=== PATIENT | male | born 1965 | race Caucasian/White ===

== ENCOUNTER 2020-06-21 07:13 | Day surgery (SDC) | payer OTHER ==
[~2020-06-21] VITALS: Ht 188 cm; Wt 150.1 kg
--- NOTE | ~2020-06-21 | OP ---
PATIENT NAME: OLIVIA JOLLY JR MEDICAL RECORD: [id number] :63 [facility] [place] ADMISSION DATE: SURGEON: MILAD GRANT MD DATE OF OPERATION: 06/21/2020 PREOPERATIVE DIAGNOSIS: Failed internal fixation of a left fifth metatarsal fracture. POSTOPERATIVE DIAGNOSIS: Failed internal fixation of a left fifth metatarsal fracture. PROCEDURES: 1. Revision fixation of the left 5th metatarsal fracture. 2. Application of allograft bone graft (Bio4). 3. Removal of previously placed hardware. SURGEON: Milad Grant MD BUCKLE GLUER: OMI Pantoja INTRAOPERATIVE COMPLICATIONS: Essentially none. SUMMARY OF PATHOLOGIC FINDINGS: The patient had broken the distal end of the screw out of the distal fragment of the screw. INDICATIONS: Mr. Jolly is a 55-year-old gentleman who weighs over 350 pounds. He is also burdened by neuropathy in the postoperative setting. He said he fell and heard a loud pop and had a recurrence of the swelling. Unfortunately, his pain level is very low due to his neuropathy. Followup x-rays show that he did actually break the screw completely out of the bone and would require revision fixation. OPERATIVE SUMMARY IN DETAIL: After obtaining the appropriate preoperative orthopedic surgery consent as well as anesthetic consultation, evaluation and clearance, the patient was brought to the operating room and placed on the table in supine position. After general laryngeal mask airway was administered, the patient was placed in a right lateral decubitus position. All pressure points were well padded to include down leg peroneal pad as he was also held firmly to the operating table using vacuum pack suction system. Axillary roll was put into place. Tourniquet was then placed about the proximal aspect of the left lower extremity. Left lower extremity was then prepped and draped in routine sterile fashion. At this point, the appropriate timeout was taken and agreed upon by all given the patient's unique identifiers. The leg was elevated and exsanguinated, tourniquet inflated to 350 mmHg. An incision was made on the mid lateral border of the fifth metatarsal. It was taken gently down to the level of the fracture site itself, which required substantial removal of interposed fibrous tissue and up into the base of the fifth metatarsal of the previous screw head was found and it was removed from the proximal aspect of the metatarsal in its entirety. At this point, substantial amount of time was spent cleaning and debriding the fracture, the interposed fracture itself. Small sagittal saw was used to make an opposing surfaces even. After opposing surfaces were even, it was pinned provisionally and x-rays showed good alignment in both AP, lateral and oblique planes. The pins at this point were removed. Bio-4 was then put into place with the OPERATIVE REPORT [id number] OLIVIA JOLLY JR fracture opened up. This was then re-reduced and pins were then placed again. The decision was made to proceed with a very large fixation plate for the area that being a 6-hole VariAx small fragment screw because of the patient's weight and neuropathy in hopes that if he does step on this again, it would likely hold up. A 6-hole plate was then put in under tension and fluoroscopic guidance. A combination of both locking and nonlocking screws. Of course nonlocking screws for compression. Good alignment was achieved in both AP and lateral planes. Copious irrigation was then followed by #1 Vicryl and 2-0 Vicryl in a [id number]-[id number]-near closure. Padded dressing was placed and a postoperative L&U was placed. Final radiographs have been taken and submitted for radiologist review. At this point, the patient was awakened and taken to recovery room in stable condition. All final needle and sponge counts were correct. It is of note that the patient's family was warned of the absolute need for nonweightbearing to get this to heal in this diabetic neuropathic gentleman. TRANSINT:[id number] Voice Confirmation ID: [id number] DOCUMENT ID: [id number] 06/25/2020 Edited per earline abdalla. RUDY MONTES, MILAD NARAYAN CC: [id number] DICTATION DATE: 06/23/20 1300 ELIGIBILITY COUNSELOR: 06/23/20 2325 [facility] 06/21/20 [facility] [address] [id number]
[2020-06-21 06:50] LABS: HEMATOCRIT 47.3 % (42.0-54.0); HEMOGLOBIN 15.8 g/dL (13.5-17.5); MCH 30.6 pg (26.0-34.0); MCHC 33.4 g/dL (31.0-37.0); MCV 91.7 fL (80.0-100.0); MEAN PLATELET VOLUME 9.9 fL (7.4-10.4); RBC 5.16 10x6/uL (4.20-6.10); RDW 14.1 % (11.5-14.5); WBC 8.6 10x3/uL (4.8-10.8)
[2020-06-21 07:12] LABS: ANION GAP 12.8 mmol/L (8-16); CALCIUM 9.3 mg/dL (8.5-10.1); CARBON DIOXIDE 23.7 mmol/L (21.0-32.0); CREATININE - SERUM 1.5 mg/dL (0.6-1.3); POTASSIUM - SERUM 4.5 mmol/L (3.5-5.1)
[~2020-06-21 07:13] MED LIST: ADIPEX-P37.5 MG PO; ARMOUR THYROID30 MG PO; ATIVAN1 MG PO; BUTRANS1 EAC3 TRANSDERM; HYDROCODON-ACE1 EA10 PO; LANTUS SOLOSTAR3 ML SC; LISINOPRIL20 MG PO; NORVASC2.5 MG PO; OZEMPIC1 MG/0.75 SC; SYNTHROID300 MCG PO; TESTOSTERONE IM; [UNRECOGNIZED DRUG - OTHER] PO
[2020-06-21] MEDS ORDERED: BACTRIM DS TAB1 EAC1 PO (07:27)
[2020-06-21 07:31] VITALS: BP 139/83; Ht 188 cm; Wt 150.1 kg
[2020-06-21] MEDS ORDERED: HYDROCODON-ACE1 EA10 PO (11:50)
--- NOTE | 2020-06-21 15:22 | NUR ---
1342 PT STATES THAT HE HAS NOT FELT MUCH RELIEF FROM PAIN MEDICATION WHEN ASKED. HE HAS BEEN EAGER TO BE DISCHARGED HOME SO HE STATES THAT HE WILL ELEVATE HIS LLE UP HIGH ON PILLOWS AND KEEP ICE ON IT. HE STATES THAT IT DOES FEEL LIKE A HEART BEAT IN HIS FOOT. 1413 IV DC'D. CATHETER TIP INTACT. NO BLEEDING AT SITE. PT CONTINUES TO WAIT FOR HIS SON TO ARRIVE AT HOSPITAL TO TRANSPORT HIM HOME
== END 2020-06-21 14:47 | disposition home or self-care (01) ==
LOC: D.OPS 07:13 → D.PAN 08:45 → D.OPS 08:45
PROVIDERS: Anesthesiology; ATTEND Orthopaedic Surgery
DX: S92.352S Displaced fracture of fifth metatarsal bone, left foot, sequela (principal); M79.672 Pain in left foot; I10 Essential (primary) hypertension; E11.9 Type 2 diabetes mellitus without complications; E03.9 Hypothyroidism, unspecified; E78.5 Hyperlipidemia, unspecified; E66.9 Obesity, unspecified

== ENCOUNTER 2020-07-28 08:27 | Inpatient (IN) | payer OTHER ==
[~2020-07-28] VITALS: Ht 188 cm; Wt 149.7 kg
--- NOTE | ~2020-07-28 | OP ---
PATIENT NAME: OLIVIA JOLLY JR MEDICAL RECORD: [id number] :63 LOCATION:[id number] ADMISSION DATE:07/29/20 SURGEON: MILAD GRANT MD DATE OF OPERATION: 07/29/2020 PREOPERATIVE DIAGNOSES: 1. Left foot infection with residual hardware, now with osteomyelitis. 2. Peripheral neuropathy. 3. Diabetes. 4. Chronic obesity. POSTOPERATIVE DIAGNOSES: 1. Left foot infection with residual hardware, now with osteomyelitis. 2. Peripheral neuropathy. 3. Diabetes. 4. Chronic obesity. PROCEDURES: 1. Hardware removal of the left foot. 2. I&D of the left foot to include skin, subcutaneous tissue, portions of fat, fascia, muscle and bone. 3. Application of a wound negative pressure wound VAC. SURGEON: Milad Grant MD HIGH SCHOOL FOOTBALL COACH: Tyler Christine. INDICATIONS: This gentleman had a malunited Benjamin fracture that was initially treated with screw fixation that failed, although the patient said he had not walked on it, I have seen him walk on it and stand on it several times. The failure included a breakout of the screw proximally. The screw was removed and then a plate was put on, and after the plate was put on he developed substantial cellulitis and again I do think he was probably walking on it given his neuropathy in his job. At any rate, the surgery was planned for today in order to try and save his foot from further surgery and even need for amputation. OPERATIVE SUMMARY IN DETAIL: After obtaining the appropriate preoperative orthopedic surgery consent as well as anesthetic consultation, evaluation and clearance, the patient was brought to the operating room and placed on the operating table in supine position. After general laryngeal mask airway was administered, the patient's left foot was prepped and draped in routine sterile fashion. Attention was first turned to debriding nonviable, very cellulitic appearing tissue. This was done with curettage sharply with a scalpel as well as a rongeur. Then very easily, the plate was found. Serial and sequential removal of both screws and the plate led to identification of a nonunited midshaft metatarsal fracture. Further irrigation was done until all nonviable tissue was seen and good bleeding bed was achieved. At this point, a wound VAC was then placed with 125 mm of negative pressure, medium intensity, continuous. Good seal was achieved. The patient was awakened and taken to the recovery room in stable condition. All final needle and sponge counts were correct. TRANSINT:[id number] Voice Confirmation ID: [id number] DOCUMENT ID: [id number] OPERATIVE REPORT [id number] OLIVIA JOLLY JR, MD, MILAD NARAYAN CC: [id number] DICTATION DATE: 08/19/201402 ELECTRONICS COMMODITY MANAGER: 08/19/20 1546 DIS IN 08/06/20 [facility] [address] [place] [address]
[~2020-07-28 08:27] MED LIST changes: +BACTRIM DS TAB1 EAC1 PO
[2020-07-29] MEDS ORDERED: DOXYCYCLINE HY100 M2 PO (09:37)
[2020-07-29 09:45] VITALS: BP 134/81; BMI 42.4
[2020-07-29 11:15] LABS: BASOPHILS 0 % (0-2); EOSINOPHILS 0.4 % (0-7); HEMATOCRIT 34.2 % (42.0-54.0); HEMOGLOBIN 11.2 g/dL (13.5-17.5); IMMATURE GRANULOCYTES 0.6 % (0-5); LYMPHOCYTES 15.3 % (15-50); MCH 29.2 pg (26.0-34.0); MCHC 32.7 g/dL (31.0-37.0); MCV 89.3 fL (80.0-100.0); MEAN PLATELET VOLUME 9.4 fL (7.4-10.4); MONOCYTES 10.7 % (2-11); PLATELET COUNT 245 10x3/uL (130-400); RBC 3.83 10x6/uL (4.20-6.10); RDW 14.1 % (11.5-14.5)
[2020-07-29 11:24] LABS: ANION GAP 11.5 mmol/L (8-16); CALCIUM 9.2 mg/dL (8.5-10.1); CARBON DIOXIDE 24.3 mmol/L (21.0-32.0); CREATININE - SERUM 1.3 mg/dL (0.6-1.3); POTASSIUM - SERUM 3.8 mmol/L (3.5-5.1)
[2020-07-29 12:04] VITALS: BP 134/81
[2020-07-29 12:16] LABS: ERYTHROCYTE SEDIMENTATION RATE 132 mm/hr (0-20)
--- NOTE | 2020-07-29 12:33 | NUR ---
PATIENT DENIES PAIN. WIGGLES TOES. WOUND VAC TO SUCTION. NO COMPLICATIONS.
[2020-07-29 12:52] VITALS: BP 156/85
--- NOTE | 2020-07-29 12:53 | NUR ---
PT RETURNS TO ROOM VIA BED ESCORTED BY RECOVERY ROOM STAFF. PT IS AAO X 4 AND ANSWERS ALL QUESTIONS APPROPRIATELY. PT EDUCATED ON 1200ML FLUID RESTRICTION AND NO FREE WATER. PT VERBALIZES UNDERSTANDING. INCENTIVE SPIROMETER AT BEDSIDE AND ENCOURAGED. PT VERBALIZES UNDERSTANDING WITH INCENTIVE SPIROMETER. DRESSING NOTED TO LEFT FOOT AND IS CDI. WOUND VAC TO LEFT FOOT AND IS WITHOUT COMPROMISE. PIV TO LEFT FA INFUSING WITHOUT DIFFICULTY. PT DENIES PRESENCE OF NUMBNESS/TINGLING TO BUE AND BLE EXTREMITIES. FALL PRECAUTIONS IN PLACE. BED IS IN THE LOWEST POSITION. CALL LIGHT AND BEDSIDE TABLE ARE WITHIN REACH. SIDE RAILS X 2. PT DENIES FURTHER NEEDS. WILL CONT TO MONITOR.
[2020-07-29 16:42] VITALS: BP 112/52
[2020-07-29 17:50] VITALS: BP 136/61
--- NOTE | 2020-07-29 18:45 | NUR ---
I have reviewed this patient and I concur with the Shift Assessment completed by the Licensed Practical Nurse today this shift.
[2020-07-29 20:00] VITALS: BP 107/50
[2020-07-30 04:00] VITALS: BP 134/60
[2020-07-30 05:39] LABS: BASOPHILS 0.2 % (0-2); EOSINOPHILS 0.6 % (0-7); HEMATOCRIT 33.5 % (42.0-54.0); HEMOGLOBIN 10.9 g/dL (13.5-17.5); LYMPHOCYTES 20.6 % (15-50); MCH 29.1 pg (26.0-34.0); MCHC 32.5 g/dL (31.0-37.0); MCV 89.3 fL (80.0-100.0); MEAN PLATELET VOLUME 9.4 fL (7.4-10.4); MONOCYTES 11.8 % (2-11); NEUTROPHILS 65.8 % (40-80); PLATELET COUNT 260 10x3/uL (130-400); RBC 3.75 10x6/uL (4.20-6.10); RDW 14.2 % (11.5-14.5); WBC 6.2 10x3/uL (4.8-10.8)
--- NOTE | 2020-07-30 05:47 | NUR ---
I have reviewed this patient and I concur with the Shift Assessment completed by the Licensed Practical Nurse today this shift.
[2020-07-30 06:02] LABS: ALBUMIN 2.1 g/dL (3.4-5.0); ANION GAP 14.1 mmol/L (8-16); BILIRUBIN - TOTAL 0.4 mg/dL (0.2-1.3); CALCIUM 8.9 mg/dL (8.5-10.1); CARBON DIOXIDE 25.2 mmol/L (21.0-32.0); CREATININE - SERUM 1.5 mg/dL (0.6-1.3); POTASSIUM - SERUM 4.3 mmol/L (3.5-5.1); PROTEIN - SERUM 7.2 g/dL (6.4-8.2)
[2020-07-30 06:18] LABS: C-REACTIVE PROTEIN 21.5 mg/dL (0.0-0.9)
--- NOTE | 2020-07-30 07:30 | NUR ---
REC'D IN BED AWAKE AND ALERT. RESP EVEN AND UNLABORED WTIH NO DISTRESS NOTED. CAN EXPRESS NEEDS AND WANTS. NO C/O NOTED OR VOICED. WOUND VAC NOTED TO RIGHT FOOT AT THIS TIME. REMAIN NWB TO RLE. ASSESSMENT COMPLETED. C/L IN REACH AT BEDSIDE.
[2020-07-30 08:25] LABS: ERYTHROCYTE SEDIMENTATION RATE 115 mm/hr (0-20)
[2020-07-30 10:10] VITALS: BP 112/60
--- NOTE | 2020-07-30 11:39 | NUR ---
ORDER RECEIVED FOR PICC PLACEMENT. ON ARRIVAL, PICC LINE DISCUSSED WITH PATIENT AND WRITTEN CONSENT OBTAINED. USING SITE RITE ULTRASOUND, LEFT UPPER ARM BASILIC VEIN IDENTIFIED FOR USE. PREP, DRAPE AND 1% XYLOCAINE TO AREA. VEIN ACCESSED AND DOUBLE LUMEN PICC INSERTED TO 51 CM WTIH GOOD BLOOD RETURN AND FLUSHES EASILY. SITE DRESSED WITH STATLOCK, BIOPATCH AND TEGADERM DRESSING TO SITE. PLACEMENT CONFIRMED WITH 3CG WITH STRIP ATTACHED. ARM CIRCUMFERENCE 36 CM AT SITE OF INSERTION. PATIENT TOLERATED PROCEDURE WELL WITH LESS THAN 5 ML BLOOD LOSS.
--- NOTE | 2020-07-30 12:35 | NUR ---
WAS MEDICATED WITH OXY AT THIS TIME FOR C/O FOOT PAIN.
[2020-07-30 13:29] VITALS: BMI 42.3
[2020-07-30 13:50] VITALS: BP 140/76
--- NOTE | 2020-07-30 16:11 | NUR ---
I have reviewed this patient and I concur with the Shift Assessment completed by the Licensed Practical Nurse today this shift.
[2020-07-30 16:49] VITALS: BP 114/65
[2020-07-30 20:00] VITALS: BP 120/68
[2020-07-31] VITALS: BP 122/60
[2020-07-31 04:00] VITALS: BP 133/75
--- NOTE | 2020-07-31 04:05 | NUR ---
I have reviewed this patient and I concur with the Shift Assessment completed by the Licensed Practical Nurse today this shift.
--- NOTE | 2020-07-31 05:54 | NUR ---
PATIENT RESTING IN BED WATCHING TV. NO S/S OF ACUTE DISTRESS. NO C/O AT THIS TIME. PATIENT HAS A RIGHT PICC, 1/2 NORMAL SALINE @ 50 ML/HR. IV IS PATENT WITHOUT REDNESS, SWELLING, OR TENDERNESS. PATIENT HAS DRESSING ON RIGHT FOOT AND A WOUND VAC, DRESSING C/D/I. PATIENT IS UP WITH ASSISTANCE AND NON-WEIGHT BEARING ON THAT RIGHT FOOT
--- NOTE | 2020-07-31 07:15 | NUR ---
REC'D IN BED AWAKE AND ALERT. RESP EVEN AND UNLABORED WITH NO DISTRESS NOTED. CAN EXPRESS NEEDS AND WANTS. NO C/O NOTED OR VOICED. WOUND VAC NOTED TO RIGHT FOOT. ASSESSMENT COMPLETED. C/L IN REACH AT BEDSIDE.
[2020-07-31 07:21] LABS: ANION GAP 10.8 mmol/L (8-16); C-REACTIVE PROTEIN 11.6 mg/dL (0.0-0.9); CALCIUM 8.7 mg/dL (8.5-10.1); CARBON DIOXIDE 26.1 mmol/L (21.0-32.0); CREATININE - SERUM 1.2 mg/dL (0.6-1.3); POTASSIUM - SERUM 3.9 mmol/L (3.5-5.1); VANCOMYCIN - TROUGH 15.4 ug/mL (10.0-20.0)
--- NOTE | 2020-07-31 08:33 | NUR ---
WAS MEDICATED WITH OXY AT THIS TIME FOR C/O FOOT PAIN. C/L IN REACH AT BEDSIDE.
[2020-07-31 09:09] LABS: BASOPHILS 0.2 % (0-2); EOSINOPHILS 1.4 % (0-7); HEMATOCRIT 32.2 % (42.0-54.0); HEMOGLOBIN 10.5 g/dL (13.5-17.5); IMMATURE GRANULOCYTES 0.8 % (0-5); LYMPHOCYTES 26.3 % (15-50); MCH 29.4 pg (26.0-34.0); MCHC 32.6 g/dL (31.0-37.0); MCV 90.2 fL (80.0-100.0); MEAN PLATELET VOLUME 9.5 fL (7.4-10.4); NEUTROPHILS 63.3 % (40-80); PLATELET COUNT 248 10x3/uL (130-400); RBC 3.57 10x6/uL (4.20-6.10); WBC 6.4 10x3/uL (4.8-10.8)
[2020-07-31 09:15] VITALS: BP 128/77
[2020-07-31 10:18] LABS: ERYTHROCYTE SEDIMENTATION RATE 107 mm/hr (0-20)
[2020-07-31 12:23] VITALS: BP 125/75
--- NOTE | 2020-07-31 14:12 | NUR ---
WAS MEDICATED WITH OXY AT THIS TIME FOR C/O FOOT PAIN. C/L IN REACH AT BEDSIDE.
[2020-07-31 16:00] VITALS: BP 139/73
--- NOTE | 2020-07-31 17:24 | NUR ---
I have reviewed this patient and I concur with the Shift Assessment completed by the Licensed Practical Nurse today this shift.
--- NOTE | 2020-07-31 19:25 | NUR ---
PATIENT TAKING SHOWER.
--- NOTE | 2020-07-31 19:45 | NUR ---
PATIENT OUT OF SHOWER. ASSESSMENT PERFORMED. WOUND VAC REMAINS IN TACT TO THE RIGHT FOOT AND SUCTIONING AT 125 MMHQ. PATIENT DENIES NEEDS AT THIS TIME. CALL LIGHT CLOSE. CPOC.
--- NOTE | 2020-07-31 20:00 | NUR ---
PATIENT REQUESTS PAIN MEDICINE FOR PAIN IN RT FOOT 05/07. ADMINISTERED PER ORDER.
[2020-07-31 21:35] VITALS: BP 168/88
[2020-08-01] VITALS: BP 153/76
[2020-08-01 04:00] VITALS: BP 146/81
[2020-08-01 05:31] LABS: BASOPHILS 0 % (0-2); LYMPHOCYTES 14.8 % (15-50); MCH 29.6 pg (26.0-34.0); MCHC 33.3 g/dL (31.0-37.0); MCV 88.7 fL (80.0-100.0); MEAN PLATELET VOLUME 9.6 fL (7.4-10.4); MONOCYTES 6.4 % (2-11); NEUTROPHILS 76.8 % (40-80); RDW 13.9 % (11.5-14.5); WBC 4.8 10x3/uL (4.8-10.8)
[2020-08-01 05:37] LABS: ANION GAP 11.1 mmol/L (8-16); C-REACTIVE PROTEIN 6.5 mg/dL (0.0-0.9); CALCIUM 8.8 mg/dL (8.5-10.1); CARBON DIOXIDE 25.8 mmol/L (21.0-32.0); POTASSIUM - SERUM 3.9 mmol/L (3.5-5.1)
[2020-08-01 05:38] LABS: PLATELET COUNT 169 10x3/uL (130-400); RBC 5.41 10x6/uL (4.20-6.10)
[2020-08-01 05:40] LABS: CREATININE - SERUM 1.7 mg/dL (0.6-1.3)
[2020-08-01 06:19] LABS: ERYTHROCYTE SEDIMENTATION RATE 18 mm/hr (0-20)
[2020-08-01 08:36] VITALS: BP 138/82
--- NOTE | 2020-08-01 09:55 | NUR ---
PT RESTING QUIETLY IN BED. RESP EVEN AND UNLABORED. PT REPORTS PAIN "MINIMAL" AT THIS TIME. PICC LINE INTACT TO LEFT UPPER ARM. SITE WITHOUT REDNESS OR EDEMA. DRESSING C/D/I TO LEFT LOWER EXTREMITY, WITH WOUND VAC IN PLACE. DISCUSSED FLUID RESTRICTIONS AT THIS TIME. PT VOICES UNDERSTANDING OF LIMITING FREE WATER. DENIES FURTHER NEEDS AT THIS TIME. CL WITHIN REACH. ENCOURAGED TO CALL WITH NEEDS. CONTINUE POC
[2020-08-01 11:51] VITALS: BP 141/79
[2020-08-01 16:22] VITALS: BP 142/72
[2020-08-01 20:00] VITALS: BP 135/67
[2020-08-02] VITALS: BP 143/72
--- NOTE | 2020-08-02 02:11 | NUR ---
TUBING CHANGED PER UNIT PROTOCAL.
[2020-08-02 04:00] VITALS: BP 123/70
[2020-08-02 05:44] LABS: BASOPHILS 0.3 % (0-2); EOSINOPHILS 2.9 % (0-7); IMMATURE GRANULOCYTES 1.1 % (0-5); LYMPHOCYTES 20.5 % (15-50); MCH 28.9 pg (26.0-34.0); MCHC 31.9 g/dL (31.0-37.0); MCV 90.5 fL (80.0-100.0); MEAN PLATELET VOLUME 9.1 fL (7.4-10.4); MONOCYTES 8.6 % (2-11); NEUTROPHILS 66.6 % (40-80); RDW 14.2 % (11.5-14.5)
[2020-08-02 06:06] LABS: HEMATOCRIT 33.2 % (42.0-54.0); HEMOGLOBIN 10.6 g/dL (13.5-17.5); RBC 3.67 10x6/uL (4.20-6.10); WBC 7.3 10x3/uL (4.8-10.8)
[2020-08-02 06:07] LABS: C-REACTIVE PROTEIN 5.3 mg/dL (0.0-0.9); CALCIUM 8.4 mg/dL (8.5-10.1); CARBON DIOXIDE 26.1 mmol/L (21.0-32.0); CREATININE - SERUM 1.9 mg/dL (0.6-1.3); PLATELET COUNT 276 10x3/uL (130-400); POTASSIUM - SERUM 4.1 mmol/L (3.5-5.1)
--- NOTE | 2020-08-02 07:25 | NUR ---
PT ASLEEP IN BED, EASILY AWAKENED. LUMGS CTA, PICC LT UPPER ARM PATENT , ABX RUNNING AT THIS TIME, WOUND VAC TO LEFT FOOT. NO S/SX OF DISTRESS NO NEEDS VOICED BY PATIENT AT THIS TIME. ASSUME PT CARE
[2020-08-02 08:20] LABS: ERYTHROCYTE SEDIMENTATION RATE 114 mm/hr (0-20)
[2020-08-02 09:05] VITALS: BP 135/77
--- NOTE | 2020-08-02 10:28 | NUR ---
I have reviewed this patient and I concur with the Shift Assessment completed by the Licensed Practical Nurse today this shift.
[2020-08-02 12:38] VITALS: BP 135/72
[2020-08-02 15:00] VITALS: BP 123/55
--- NOTE | 2020-08-02 15:10 | NUR ---
WOUND VAC DRESSING CHANGE DATE: 08/02/20 WOUND LOCATION: left foot WOUND MEASUREMENTS: 2.2cm x 7cm x 1.5cm WOUND DESCRIPTION: red/vascular MUSCLE, TENDON, OR BONE EXPOSED? can tap bone DRAINAGE AMOUNT/DESCRIPTION: small bloody ODOR? no TYPE OF SPONGE USED AND AMOUNT: black x 1 in wound bed + 2 outer for pig tail SETTINGS: -125mmhg low continuous TEACHING: vac dressing changes, home vac, home health Pt tolerated well. Wound cultures obtained as per Dr. Glass's orders/
[2020-08-02 20:00] VITALS: BP 131/75
--- NOTE | 2020-08-02 21:00 | NUR ---
REFUSES LANTUS AND FSBS
[2020-08-03 04:00] VITALS: BP 134/78
[2020-08-03 06:43] LABS: BASOPHILS 0.1 % (0-2); EOSINOPHILS 2.7 % (0-7); HEMATOCRIT 33.4 % (42.0-54.0); HEMOGLOBIN 10.7 g/dL (13.5-17.5); IMMATURE GRANULOCYTES 1.4 % (0-5); LYMPHOCYTES 19.5 % (15-50); MCH 29.2 pg (26.0-34.0); MCV 91.3 fL (80.0-100.0); MEAN PLATELET VOLUME 9.3 fL (7.4-10.4); MONOCYTES 8.4 % (2-11); NEUTROPHILS 67.9 % (40-80); PLATELET COUNT 298 10x3/uL (130-400); RBC 3.66 10x6/uL (4.20-6.10); RDW 14.2 % (11.5-14.5); WBC 7.7 10x3/uL (4.8-10.8)
[2020-08-03 07:00] VITALS: BP 133/69
[2020-08-03 07:06] LABS: ANION GAP 10.6 mmol/L (8-16); C-REACTIVE PROTEIN 4.8 mg/dL (0.0-0.9); CARBON DIOXIDE 27.8 mmol/L (21.0-32.0); POTASSIUM - SERUM 4.4 mmol/L (3.5-5.1)
[2020-08-03 07:58] LABS: ERYTHROCYTE SEDIMENTATION RATE 98 mm/hr (0-20)
[2020-08-03 11:00] VITALS: BP 129/75
--- NOTE | 2020-08-03 13:50 | NUR ---
NUTRITION F/U CHART REVIEWED. PT TOLERATING DIABETIC DIET ~ ABOUT 50% INTAKE MEALS. WILL CONTINUE TO PROVIDE DIET, MONITOR PO INTAKE. RD FOLLOWING
[2020-08-03 15:00] VITALS: BP 143/75
[2020-08-03 20:00] VITALS: BP 143/74
[2020-08-04 04:00] VITALS: BP 130/75
[2020-08-04 06:47] LABS: BASOPHILS 0.1 % (0-2); EOSINOPHILS 2.1 % (0-7); HEMATOCRIT 33.4 % (42.0-54.0); HEMOGLOBIN 10.6 g/dL (13.5-17.5); IMMATURE GRANULOCYTES 1.6 % (0-5); LYMPHOCYTES 16.2 % (15-50); MCH 28.9 pg (26.0-34.0); MCHC 31.7 g/dL (31.0-37.0); MEAN PLATELET VOLUME 9.2 fL (7.4-10.4); PLATELET COUNT 313 10x3/uL (130-400); RBC 3.67 10x6/uL (4.20-6.10); RDW 14.1 % (11.5-14.5)
[2020-08-04 06:50] LABS: WBC 10.1 10x3/uL (4.8-10.8)
[2020-08-04 07:01] LABS: ALBUMIN 2.3 g/dL (3.4-5.0); ANION GAP 13.4 mmol/L (8-16); BILIRUBIN - TOTAL 0.38 mg/dL (0.2-1.3); CALCIUM 8.7 mg/dL (8.5-10.1); CARBON DIOXIDE 25.7 mmol/L (21.0-32.0); CREATININE - SERUM 1.9 mg/dL (0.6-1.3); POTASSIUM - SERUM 4.1 mmol/L (3.5-5.1); PROTEIN - SERUM 7.5 g/dL (6.4-8.2); VANCOMYCIN - TROUGH 17.2 ug/mL (10.0-20.0)
[2020-08-04 08:54] VITALS: BP 140/72
[2020-08-04 12:02] VITALS: BP 132/68
[2020-08-04 14:30] VITALS: BP 148/75
--- NOTE | 2020-08-04 15:05 | NUR ---
WOUND VAC DRESSING CHANGE DATE: 08/04/20 WOUND LOCATION: left foot WOUND MEASUREMENTS:2cm x 6.5cm x 1.4cm (improved) WOUND DESCRIPTION: granulating tissue noted MUSCLE, TENDON, OR BONE EXPOSED? bone can be tapped DRAINAGE AMOUNT/DESCRIPTION: small sanguinous ODOR? no odor TYPE OF SPONGE USED AND AMOUNT: black x 1 SETTINGS:-125mmhg low continuous TEACHING: troubleshooting alarms/air leaks Pt tolerated well.
--- NOTE | 2020-08-04 16:43 | MORECARE ---
CASE MANAGEMENT DISCHARGE SUMMARY PATIENT: OLIVIA JOLLY JR UNIT: [id number] ADM DATE: 07/29/20 AGE: 55 : 63 SEX: M ROOM/BED: D.2226 AUTHOR: TRACE DE JESUS PHYSICIAN: REFERRING PHYSICIAN: MILAD GRANT MD DATE OF SERVICE: 08/04/20 Discharge Plan Patient Name: [facility]IVIA JOLLY [facility] [facility] 1965 Planned Disposition: Home with Home Health and Infusion Serv Anticipated Discharge Date: Discharge Date: Expected LOS: Initial Reviewer: [email or web address] Initial Review Date: 07/29/2020 Generated: 08/04/20 5:42 pm DCP- Discharge Planning Updated by [email or web address]: Shraddha Nunez on 08/04/20 3:[address] Patient Name: OLIVIA JOLLY Admission Status: Elective Accout number: [id number] Admission Date: 07-29-2020 : 1965 Admission Diagnosis: Attending: MILAD GRANT Current LOS: 6 Anticipated DC Date: Planned Disposition: Home with Home Health and Infusion Serv Primary Insurance: [employer] [facility] Discharge Planning Comments: CM met with patient at bedside after explaining CM role and obtaining verbal consent. CM discussed availability / needs of home health, REHAB and medical equipment. PATIENT WILL NEED HH AND IV INFUSION COMPANY, [facility] SIGNED [facility]. I AM FAXING REFERRAL TODAY. ANTICIPATE DC TOMORROW. CM TO FOLLOW AND ASSIST. PCP IS DR. LARA. Learning Coach: Shraddha Nunez External Providers External Provider: [facility] Next Contact Date: Service Request Date: Service Type: Resolution: Reviewer: Comments: Patient Name: OLIVIA JOLLY Page [phone] at 1643 All edits/amendments must be made on the electronic document DICTATION DATE: 08/04/201641 PLATE GLASS GRINDER: HARRISON 08/04/201641 RPT#: [id number] DC DATE: STATUS: ADM IN [facility] [address] [place] [address] END OF REPORT
[2020-08-04 22:21] VITALS: BP 166/67
--- NOTE | 2020-08-05 02:31 | NUR ---
I have reviewed this patient and I concur with the Shift Assessment completed by the Licensed Practical Nurse today this shift.
[2020-08-05 04:00] VITALS: BP 134/71
[2020-08-05 04:34] LABS: BASOPHILS 0.2 % (0-2); EOSINOPHILS 2.2 % (0-7); HEMATOCRIT 31.9 % (42.0-54.0); HEMOGLOBIN 10.2 g/dL (13.5-17.5); IMMATURE GRANULOCYTES 1.5 % (0-5); LYMPHOCYTES 13.3 % (15-50); MCV 90.6 fL (80.0-100.0); MEAN PLATELET VOLUME 9.2 fL (7.4-10.4); MONOCYTES 7.8 % (2-11); PLATELET COUNT 309 10x3/uL (130-400); RBC 3.52 10x6/uL (4.20-6.10); RDW 14.3 % (11.5-14.5)
[2020-08-05 04:57] LABS: ANION GAP 10.2 mmol/L (8-16); BILIRUBIN - TOTAL 0.33 mg/dL (0.2-1.3); CALCIUM 8.4 mg/dL (8.5-10.1); CARBON DIOXIDE 25.9 mmol/L (21.0-32.0); CREATININE - SERUM 1.9 mg/dL (0.6-1.3); POTASSIUM - SERUM 4.1 mmol/L (3.5-5.1)
--- NOTE | 2020-08-05 07:16 | NUR ---
UP AND IN SHOWER. PATIENT IS WITHOUT DISTRESS.
--- NOTE | 2020-08-05 07:17 | NUR ---
CELL PHONE IN HAND. PATIENT AWAKE AND WITHOUT DISTRESS.
[2020-08-05 08:00] VITALS: BP 147/77
--- NOTE | 2020-08-05 08:39 | MORECARE ---
CASE MANAGEMENT DISCHARGE SUMMARY PATIENT: OLIVIA JOLLY JR UNIT: [id number] ADM DATE: 07/29/20 AGE: 55 : 63 SEX: M ROOM/BED: D.2226 AUTHOR: TRACE DE JESUS PHYSICIAN: REFERRING PHYSICIAN: MILAD GRANT MD DATE OF SERVICE: 08/05/20 Discharge Plan Patient Name: OLIVIA JOLLY [facility] [facility] 1965 Planned Disposition: Home with Home Health and Infusion Serv Anticipated Discharge Date: Discharge Date: Expected LOS: Initial Reviewer: [email or web address] Initial Review Date: 07/29/2020 Generated: 08/05/20 9:39 am DCP- Discharge Planning Updated by [email or web address]: Shraddha Nunez on 08/04/20 3:[address] Patient Name: OLIVIA JOLLY Admission Status: Elective Accout number: [id number] Admission Date: 07-29-2020 : 1965 Admission Diagnosis: Attending: MILAD GRANT Current LOS: 6 Anticipated DC Date: Planned Disposition: Home with Home Health and Infusion Serv Primary Insurance: [employer] [facility] Discharge Planning Comments: CM met with patient at bedside after explaining CM role and obtaining verbal consent. CM discussed availability / needs of home health, REHAB and medical equipment. PATIENT WILL NEED HH AND IV INFUSION COMPANY, [facility] SIGNED [facility]. I AM FAXING REFERRAL TODAY. ANTICIPATE DC TOMORROW. CM TO FOLLOW AND ASSIST. PCP IS DR. LARA. Therapy Site Coordinator: Shraddha Nunez External Providers External Provider: [facility] Next Contact Date: Service Request Date: Service Type: Resolution: Reviewer: Comments: Last DP export: 08/04/20 3:43 p Patient Name: OLIVIA JOLLY Page [phone] at 0839 All edits/amendments must be made on the electronic document DICTATION DATE: 08/05/20838 PSYCH SOCIAL WORKER: HARRISON 08/05/20838 RPT#: [id number] DC DATE: STATUS: ADM IN [facility] [address] [place] [address] END OF REPORT
[2020-08-05 09:24] VITALS: Ht 188 cm; Wt 149.7 kg
[2020-08-05] MEDS ORDERED: MERREM 1 GM/NS 11 G1 IV (09:26)
[2020-08-05] MEDS ORDERED: PERCOCET 10-321 EAC1 PO (09:26)
[2020-08-05] MEDS ORDERED: Vancomycin 1.25 GM/N IV (09:26)
[2020-08-05] MEDS ORDERED: ELIQUIS2.5 MG PO (09:28)
--- NOTE | 2020-08-05 10:20 | MORECARE ---
CASE MANAGEMENT DISCHARGE SUMMARY PATIENT: OLIVIA JOLLY JR UNIT: [id number] ADM DATE: 07/29/20 AGE: 55 : 63 SEX: M ROOM/BED: D.2226 AUTHOR: TRACE DE JESUS PHYSICIAN: REFERRING PHYSICIAN: MILAD GRANT MD DATE OF SERVICE: 08/05/20 Discharge Plan Patient Name: OLIVIA JOLLY [facility] [facility] 1965 Planned Disposition: Home with Home Health and Infusion Serv Anticipated Discharge Date: Discharge Date: Expected LOS: Initial Reviewer: [email or web address] Initial Review Date: 07/29/2020 Generated: 08/05/20 11:20 am DCP- Discharge Planning Updated by [email or web address]: Shraddha Nunez on 08/04/20 3:[address] Patient Name: OLIVIA JOLLY Admission Status: Elective Accout number: [id number] Admission Date: 07-29-2020 : 1965 Admission Diagnosis: Attending: MILAD GRANT Current LOS: 6 Anticipated DC Date: Planned Disposition: Home with Home Health and Infusion Serv Primary Insurance: [employer] [facility] Discharge Planning Comments: CM met with patient at bedside after explaining CM role and obtaining verbal consent. CM discussed availability / needs of home health, REHAB and medical equipment. PATIENT WILL NEED HH AND IV INFUSION COMPANY, [facility] SIGNED FOR [facility]. I AM FAXING REFERRAL TODAY. ANTICIPATE DC TOMORROW. CM TO FOLLOW AND ASSIST. PCP IS DR. LARA. Coremaker Machine: Shraddha Nunez External Providers External Provider: [facility] Next Contact Date: Service Request Date: Service Type: Resolution: Reviewer: Comments: Last DP export: 08/05/20 7:39 a Patient Name: OLIVIA JOLLY Page [phone] at 1020 All edits/amendments must be made on the electronic document DICTATION DATE: 08/05/20 1020 SUPERVISOR UNDERWRITING CLERKS: HARRISON 08/05/20 1020 RPT#: [id number] DC DATE: STATUS: ADM IN [facility] [address] [place] [address] END OF REPORT
[2020-08-05 11:56] VITALS: BP 152/76
--- NOTE | 2020-08-05 13:25 | MORECARE ---
CASE MANAGEMENT DISCHARGE SUMMARY PATIENT: OLIVIA JOLLY JR UNIT: [id number] ADM DATE: 07/29/20 AGE: 55 : 63 SEX: M ROOM/BED: D.2226 AUTHOR: TRACE DE JESUS PHYSICIAN: REFERRING PHYSICIAN: MILAD GRANT MD DATE OF SERVICE: 08/05/20 Discharge Plan Patient Name: OLIVIA JOLLY [facility]:[place] : 1965 Planned Disposition: Home with Home Health and Infusion Serv Anticipated Discharge Date: Discharge Date: Expected LOS: Initial Reviewer: [email or web address] Initial Review Date: 07/29/2020 Generated: 08/05/20 2:24 pm DCP- Discharge Planning Updated by [email or web address]: Shraddha Nunez on 08/04/20 3:[address] Patient Name: OLIVIA JOLLY Admission Status: Elective Accout number: [id number] Admission Date: 07-29-2020 : 1965 Admission Diagnosis: Attending: MILAD GRANT Current LOS: 6 Anticipated DC Date: Planned Disposition: Home with Home Health and Infusion Serv Primary Insurance: [employer] [facility] Discharge Planning Comments: CM met with patient at bedside after explaining CM role and obtaining verbal consent. CM discussed availability / needs of home health, REHAB and medical equipment. PATIENT WILL NEED HH AND IV INFUSION COMPANY, [facility] SIGNED FOR [facility]. I AM FAXING REFERRAL TODAY. ANTICIPATE DC TOMORROW. CM TO FOLLOW AND ASSIST. PCP IS DR. LARA. Joiner Helper: Shraddha Nunez External Providers [facility] Next Contact Date: Service Request Date: Service Type: Resolution: Reviewer: Comments: External Provider: [facility] Next Contact Date: Service Request Date: Service Type: Resolution: Reviewer: Comments: Last DP export: 08/05/20 9:20 a Patient Name: OLIVIA JOLLY Page [phone] at 1325 All edits/amendments must be made on the electronic document DICTATION DATE: 08/05/20 1324 UPKEEP WORKER: HARRISON 08/05/20 1324 RPT#: [id number] DC DATE: STATUS: ADM IN [facility] [address] [place] [address] END OF REPORT
[2020-08-05 15:53] VITALS: BP 157/82
--- NOTE | 2020-08-05 16:13 | MORECARE ---
CASE MANAGEMENT DISCHARGE SUMMARY PATIENT: OLIVIA JOLLY JR UNIT: [id number] ADM DATE: 07/29/20 AGE: 55 : 63 SEX: M ROOM/BED: D.2226 AUTHOR: NEAL,DOC PHYSICIAN: REFERRING PHYSICIAN: MILAD GRANT MD DATE OF SERVICE: 08/05/20 Discharge Plan Patient Name: OLIVIA JOLLY Facility: [facility]:[place] : 1965 Planned Disposition: Home with Home Health and Infusion Serv Anticipated Discharge Date: Discharge Date: Expected LOS: Initial Reviewer: [email or web address] Initial Review Date: 07/29/2020 Generated: 08/05/20 5:12 pm Comments DCP- Discharge Planning Updated by [email or web address]: Shraddha Nunez on 08/05/20 3:[address] Patient Name: OLIVIA JOLLY Admission Status: Elective Accout number: [id number] Admission Date: 07-29-2020 : 1965 Admission Diagnosis:OSTEOMYELITIS, UNSPECIFIED Attending: MILAD GRANT Current LOS: 7 Anticipated DC Date: Planned Disposition: Home with Home Health and Infusion Serv Primary Insurance: [employer] PPO Discharge Planning Comments: [facility] WILL DO PATIENT'S IV INFUSIONS. SOON [facility] VAC IS APPROVED WE WILL GET A VAC FROM [facility] AND SEND HOME WITH HIM. I'M WAITING CALL BACK FROM [facility] TO SEE IF HIS INSURANCE WILL APPROVE SO THEY CAN MANAGE HIS VAC AND LABS. CM TO FOLLOW AND ASSIST NEEDED. Seconds Inspector: Shraddha Nunez DCP- Discharge Planning Updated by [email or web address]: Shraddha Nunez on 08/04/20 3:[address] Patient Name: OLIVIA JOLLY Admission Status: Elective Accout number: [id number] Admission Date: 07-29-2020 : 1965 Admission Diagnosis: Attending: MILAD GRANT Current LOS: 6 Anticipated DC Date: Planned Disposition: Home with Home Health and Infusion Serv Primary Insurance: [employer] PPO Discharge Planning Comments: CM met with patient at bedside after explaining CM role and obtaining verbal consent. CM discussed availability / needs of home health, REHAB and medical equipment. PATIENT WILL NEED HH AND IV INFUSION [facility] SIGNED FOR [facility]. I AM FAXING REFERRAL TODAY. ANTICIPATE DC TOMORROW. CM TO FOLLOW AND ASSIST. PCP IS DR. LARA. Seconds Inspector: Shraddha MARIN export: 08/05/20 12:25 p Patient Name: OLIVIA JOLLY Page [phone] at 1613 All edits/amendments must be made on the electronic document DICTATION DATE: 08/05/201612 OPERATION SUPERVISOR: HRARISON 08/05/201612 RPT#: [id number] DC DATE: STATUS: ADM IN [facility] [address] [place] [address] END OF REPORT
[2020-08-05 20:00] VITALS: BP 154/82
[2020-08-06 04:00] VITALS: BP 150/71
--- NOTE | 2020-08-06 04:04 | NUR ---
I have reviewed this patient and I concur with the Shift Assessment completed by the Licensed Practical Nurse today this shift.
[2020-08-06 07:23] LABS: BASOPHILS 0.2 % (0-2); EOSINOPHILS 1.7 % (0-7); HEMATOCRIT 31.4 % (42.0-54.0); HEMOGLOBIN 10.2 g/dL (13.5-17.5); IMMATURE GRANULOCYTES 1.3 % (0-5); LYMPHOCYTES 9.9 % (15-50); MCH 29.1 pg (26.0-34.0); MCHC 32.5 g/dL (31.0-37.0); MCV 89.7 fL (80.0-100.0); MEAN PLATELET VOLUME 9.1 fL (7.4-10.4); MONOCYTES 8.3 % (2-11); NEUTROPHILS 78.6 % (40-80); PLATELET COUNT 332 10x3/uL (130-400); RDW 14.4 % (11.5-14.5)
[2020-08-06 07:24] LABS: WBC 11.6 10x3/uL (4.8-10.8)
[2020-08-06 07:34] LABS: ALBUMIN 2.2 g/dL (3.4-5.0); ANION GAP 10.4 mmol/L (8-16); BILIRUBIN - TOTAL 0.41 mg/dL (0.2-1.3); CALCIUM 8.8 mg/dL (8.5-10.1); CARBON DIOXIDE 25.8 mmol/L (21.0-32.0); CREATININE - SERUM 1.8 mg/dL (0.6-1.3); POTASSIUM - SERUM 4.2 mmol/L (3.5-5.1); PROTEIN - SERUM 7.4 g/dL (6.4-8.2)
[2020-08-06 08:00] VITALS: BP 153/63
--- NOTE | 2020-08-06 11:36 | MORECARE ---
CASE MANAGEMENT DISCHARGE SUMMARY PATIENT: OLIVIA JOLLY JR UNIT: [id number] ADM DATE: 07/29/20 AGE: 55 : 63 SEX: M ROOM/BED: D.2226 AUTHOR: NEAL,DOC PHYSICIAN: REFERRING PHYSICIAN: MILAD GRANT MD DATE OF SERVICE: 08/06/20 Discharge Plan Patient Name: OLIVIA JOLLY Facility: [facility]:[place] : 1965 Planned Disposition: Home with Home Health and Infusion Serv Anticipated Discharge Date: Discharge Date: Expected LOS: Initial Reviewer: [email or web address] Initial Review Date: 07/29/2020 Generated: 08/06/20 12:35 pm Comments DCP- Discharge Planning Updated by [email or web address]: Shraddha Nunez on 08/06/20 10:[address] Patient Name: OLIVIA JOLLY Admission Status: Elective Accout number: [id number] Admission Date: 07-29-2020 : 1965 Admission Diagnosis:OSTEOMYELITIS, UNSPECIFIED Attending: MIALD GRANT Current LOS: 8 Anticipated DC Date: Planned Disposition: Home with Home Health and Infusion Serv Primary Insurance: [employer] PPO Discharge Planning Comments: VAC APPROVED AND TAKEN TO PATIENT ROOM. READY TO DC TO HOME AND [facility] WILL SEE TOMORROW. [facility] DELIVERED EQUIPMENT LAST NIGHT. CM TO FOLLOW AND ASSIST NEEDED. Vp Of Customer Experience Strategy: Shraddha Nunez DCP- Discharge Planning Updated by [email or web address]: Shraddha Nunez on 08/05/20 3:[address] Patient Name: OLIVIA JOLLY Admission Status: Elective Accout number: [id number] Admission Date: 07-29-2020 : 1965 Admission Diagnosis:OSTEOMYELITIS, UNSPECIFIED Attending: MILAD GRANT Current LOS: 7 Anticipated DC Date: Planned Disposition: Home with Home Health and Infusion Serv Primary Insurance: [employer]IG[employer] PPO Discharge Planning Comments: [facility] WILL DO PATIENT'S IV INFUSIONS. SOON [facility] V[facility] IS APPROVED WE WILL GET A VAC FROM [facility] AND SEND HOME WITH HIM. I'M WAITING CALL BACK FROM [facility] TO SEE IF HIS INSURANCE WILL APPROVE SO THEY CAN MANAGE HIS VAC AND LABS. CM TO FOLLOW AND ASSIST NEEDED. Vp Of Customer Experience Strategy: Shraddha Nunez DCP- Discharge Planning Updated by [id number]: Shraddha Nunez on 08/04/20 3:[address] Patient Name: OLIVIA JOLLY Admission Status: Elective Accout number: [id number] Admission Date: 07-29-2020 : 1965 Admission Diagnosis: Attending: MILAD GRANT Current LOS: 6 Anticipated DC Date: Planned Disposition: Home with Home Health and Infusion Serv Primary Insurance: [employer] PPO Discharge Planning Comments: CM met with patient at bedside after explaining CM role and obtaining verbal consent. CM discussed availability / needs of home health, REHAB and medical equipment. PATIENT WILL NEED HH AND IV INFUSION COMPANY, [facility]IGNED FOR [facility]. I AM FAXING REFERRAL TODAY. ANTICIPATE DC TOMORROW. CM TO FOLLOW AND ASSIST. PCP IS DR. LARA. Vp Of Customer Experience Strategy: Shraddha Medina DP export: 08/05/20 3:13 p Patient Name: OLIVIA JOLLY Page [phone] at 1136 All edits/amendments must be made on the electronic document DICTATION DATE: 08/06/20 1135 GAME ENGINEER: HARRISON 08/06/20 1135 RPT#: [id number] DC DATE: STATUS: ADM IN [facility] [address] [place] [address] END OF REPORT
[2020-08-06 12:00] VITALS: BP 152/84
--- NOTE | 2020-08-06 13:36 | NUR ---
REVIEWED DISCHARGE AND EDUCATON INFO WITH PATIENT. RECEIVED INFO WELL. NO ACUTE DISTRESS NOTED. DENIES PAIN AT THIS TIME. WOUND VAC DRESSING CHANGED BY WOUND CARE NURSE. PICC DEACCESSED. DRESSING INTACT, NO REDNESS, EDEMA, OR TENDERNESS NOTED. REVIEWED WOUND VAC CARE INSTRUCTIONS. RECEIVED WELL. TRANSFERRED TO EXIT VIA . TOLERATED WELL. NO ACUTE DISTYRESS NOTED.
--- NOTE | 2020-08-06 13:47 | NUR ---
WOUND VAC DRESSING CHANGE DATE: 08/06/2020 WOUND LOCATION: left foot WOUND MEASUREMENTS: 2cm x 6.4cm x 1.4cm (improved) WOUND DESCRIPTION: red/beefy granulating tissue MUSCLE, TENDON, OR BONE EXPOSED? NO (improved) DRAINAGE AMOUNT/DESCRIPTION: small serosanguinous ODOR? no TYPE OF SPONGE USED AND AMOUNT: black x 1 SETTINGS: -125mmhg low continuous TEACHING: troubleshooting home vac alarms Pt tolerated well. d/c'd home with home health
--- NOTE | 2020-08-09 08:56 | MORECARE ---
CASE MANAGEMENT DISCHARGE SUMMARY PATIENT: OLIVIA JOLLY JR UNIT: [id number] ADM DATE: 07/29/20 AGE: 55 : 63 SEX: M ROOM/BED: D.2226 AUTHOR: NEAL,DOC PHYSICIAN: REFERRING PHYSICIAN: MILAD GRANT MD DATE OF SERVICE: 08/09/20 Discharge Plan Patient Name: OLIVIA JOLLY Facility: [facility]:[place] : 1965 Planned Disposition: Home with Home Health and Infusion Serv Anticipated Discharge Date: Discharge Date: 08/06/2020 Expected LOS: Initial Reviewer: [email or web address] Initial Review Date: 07/29/2020 Generated: 08/09/20 9:55 am Comments DCP- Discharge Planning Updated by [email or web address]: Shraddha Nunez on 08/06/20 10:[address] Patient Name: OLIVIA JOLLY Admission Status: Elective Accout number: [id number] Admission Date: 07-29-2020 : 1965 Admission Diagnosis:OSTEOMYELITIS, UNSPECIFIED Attending: MILAD GRANT Current LOS: 8 Anticipated DC Date: Planned Disposition: Home with Home Health and Infusion Serv Primary Insurance: CIG[employer] PPO Discharge Planning Comments: VAC APPROVED AND TAKEN TO PATIENT ROOM. READY TO DC TO HOME AND [facility] WILL SEE TOMORROW. [facility] DELIVERED EQUIPMENT LAST NIGHT. CM TO FOLLOW AND ASSIST NEEDED. Warehouse Foreman: Shraddha Nunez DCP- Discharge Planning Updated by [id number]: Shraddha Nunez on 08/05/20 3:[address] Patient Name: OLIVIA JOLLY Admission Status: Elective Accout number: [id number] Admission Date: 07-29-2020 : 1965 Admission Diagnosis:OSTEOMYELITIS, UNSPECIFIED Attending: MILAD GRANT Current LOS: 7 Anticipated DC Date: Planned Disposition: Home with Home Health and Infusion Serv Primary Insurance: CIGNA PPO Discharge Planning Comments: [facility] WILL DO PATIENT'S IV INFUSIONS. SOON [facility] VAC IS APPROVED WE WILL GET A VAC FROM [facility] AND SEND HOME WITH HIM. I'M WAITING CALL BACK FROM [facility] TO SEE IF HIS INSURANCE WILL APPROVE SO THEY CAN MANAGE HIS VAC AND LABS. CM TO FOLLOW AND ASSIST NEEDED. Warehouse Foreman: Shraddha Nunez DCP- Discharge Planning Updated by [id number]: Shraddha Nunez on 08/04/20 3:[address] Patient Name: OLIVIA JOLLY Admission Status: Elective Accout number: [id number] Admission Date: 07-29-2020 : 1965 Admission Diagnosis: Attending: MILAD GRANT Current LOS: 6 Anticipated DC Date: Planned Disposition: Home with Home Health and Infusion Serv Primary Insurance: [employer] PPO Discharge Planning Comments: CM met with patient at bedside after explaining CM role and obtaining verbal consent. CM discussed availability / needs of home health, REHAB and medical equipment. PATIENT WILL NEED HH AND IV INFUSION COMPANY, [facility] SIGNED FOR [facility]. I AM FAXING REFERRAL TODAY. ANTICIPATE DC TOMORROW. CM TO FOLLOW AND ASSIST. PCP IS DR. LARA. Warehouse Foreman: Shraddha Medina DP export: 08/06/20 10:36 a Patient Name: OLIVIA JOLLY Page [phone] at 0856 All edits/amendments must be made on the electronic document DICTATION DATE: 08/09/20854 CHIEF SUSTAINABILITY OFFICER: HARRISON 08/09/20854 RPT#: [id number] DC DATE:08/06/20 STATUS: DIS IN [address] [place] [address] END OF REPORT
== END 2020-08-06 13:55 | disposition home health service (06) | DRG 493 ==
LOC: D.MS 08:27
PROVIDERS: Family Medicine; Family Medicine Adult Medicine; ADMIT Orthopaedic Surgery; ATTEND Orthopaedic Surgery
PROC: 0SPG04Z Removal of Internal Fixation Device from Left Ankle Joint, Open Approach (ICD-10-PCS; principal; 2020-07-29 11:30)
PROC: 0QBP0ZZ Excision of Left Metatarsal, Open Approach (ICD-10-PCS; 2020-07-29 11:30)
DX: M86.9 Osteomyelitis, unspecified (principal); F17.213 Nicotine dependence, cigarettes, with withdrawal; E87.1 Hypo-osmolality and hyponatremia; D62 Acute posthemorrhagic anemia; D64.9 Anemia, unspecified; E11.65 Type 2 diabetes mellitus with hyperglycemia; I10 Essential (primary) hypertension; E03.9 Hypothyroidism, unspecified; G47.33 Obstructive sleep apnea (adult) (pediatric); E66.01 Morbid (severe) obesity due to excess calories; Z72.89 Other problems related to lifestyle; F41.9 Anxiety disorder, unspecified; M19.90 Unspecified osteoarthritis, unspecified site

== ENCOUNTER → 2020-08-10 16:48 | Outpatient (CLI) | payer OTHER ==
[2020-08-05 09:24] VITALS: BMI 42.3
[~2020-08-10 16:48] MED LIST changes: +DOXYCYCLINE HY100 M2 PO; +ELIQUIS2.5 MG PO; +MERREM 1 GM/NS 11 G1 IV; +PERCOCET 10-321 EAC1 PO; +Vancomycin 1.25 GM/N IV
[2020-08-10 17:39] LABS: VANCOMYCIN - TROUGH 8.1 ug/mL (10.0-20.0)
[2020-08-10 17:40] LABS: HEMATOCRIT 35.2 % (42.0-54.0); MCH 28.6 pg (26.0-34.0); MCHC 31.3 g/dL (31.0-37.0); MCV 91.4 fL (80.0-100.0); MEAN PLATELET VOLUME 9.9 fL (7.4-10.4); PLATELET COUNT 391 10x3/uL (130-400); RBC 3.85 10x6/uL (4.20-6.10); WBC 13.8 10x3/uL (4.8-10.8)
[2020-08-10 17:48] LABS: C-REACTIVE PROTEIN 33.9 mg/dL (0.0-0.9)
[2020-08-10 18:27] LABS: EOSINOPHILS 4 % (0-7); LYMPHOCYTES 9 % (15-50); MONOCYTES 2 % (2-11); NEUTROPHILS 81 % (40-80); PLATELET ESTIMATE NORMAL
[2020-08-10 19:04] LABS: ERYTHROCYTE SEDIMENTATION RATE 115 mm/hr (0-20)
== END | disposition home or self-care (01) ==
LOC: D.LAB 16:48
PROVIDERS: ATTEND Orthopaedic Surgery
DX: M86.172 Other acute osteomyelitis, left ankle and foot (principal); E11.9 Type 2 diabetes mellitus without complications; I10 Essential (primary) hypertension

== ENCOUNTER 2020-08-12 13:10 | Outpatient (CLI) | payer OTHER ==
[~2020-08-12] VITALS: Ht 188 cm; Wt 144.1 kg
[2020-08-12 13:42] VITALS: BP 138/67; Ht 188 cm; Wt 144.1 kg
--- NOTE | 2020-08-12 15:13 | NUR ---
[facility] INFUSION COMPLETED. TOLERATED WELL. PICC LINES FLUSHED WITH NS. DC'D HOME. TAKEN OUT VIA W/C BY . ALL DC INSTRUCTIONS GIVEN. ADVISED TO CALL OR COME BACK IF ANY PROBLEMS.
== END 2020-08-12 15:12 | disposition home or self-care (01) ==
LOC: D.OPS 13:10
PROVIDERS: ATTEND Clinical Nurse Specialist Family Health
DX: M86.9 Osteomyelitis, unspecified (principal)

== ENCOUNTER → 2020-08-16 14:11 | Outpatient (CLI) | payer OTHER ==
[2020-08-12 13:42] VITALS: BMI 40.8
[2020-08-16 17:51] LABS: HEMATOCRIT 31.2 % (42.0-54.0); HEMOGLOBIN 9.6 g/dL (13.5-17.5); MCH 27.5 pg (26.0-34.0); MCHC 30.8 g/dL (31.0-37.0); MCV 89.4 fL (80.0-100.0); MEAN PLATELET VOLUME 9.6 fL (7.4-10.4); PLATELET COUNT 363 10x3/uL (130-400); RBC 3.49 10x6/uL (4.20-6.10); RDW 15.2 % (11.5-14.5); WBC 10.9 10x3/uL (4.8-10.8)
[2020-08-16 17:58] LABS: C-REACTIVE PROTEIN 11.6 mg/dL (0.0-0.9); CREATININE - SERUM 2.1 mg/dL (0.6-1.3)
[2020-08-16 18:27] LABS: EOSINOPHILS 5 % (0-7); LYMPHOCYTES 15 % (15-50); MONOCYTES 2 % (2-11); NEUTROPHILS 75 % (40-80); PLATELET ESTIMATE NORMAL
[2020-08-16 19:11] LABS: ERYTHROCYTE SEDIMENTATION RATE 117 mm/hr (0-20)
== END | disposition home or self-care (01) ==
LOC: D.LAB 14:11
PROVIDERS: ATTEND Orthopaedic Surgery
DX: M86.172 Other acute osteomyelitis, left ankle and foot (principal); T81.31XA Disruption of external operation (surgical) wound, not elsewhere classified, initial encounter

== ENCOUNTER → 2020-12-30 13:12 | Outpatient (CLI) | payer OTHER ==
[2020-09-17 11:48] VITALS: BMI 40.5
[~2020-12-30 13:12] MED LIST changes: +ADOXA100 MG PO
[2020-12-30 13:55] LABS: BASOPHILS 0.1 % (0-2); EOSINOPHILS 0.1 % (0-7); HEMATOCRIT 37.5 % (42.0-54.0); HEMOGLOBIN 12.6 g/dL (13.5-17.5); IMMATURE GRANULOCYTES 0.8 % (0-5); LYMPHOCYTES 4.2 % (15-50); MCH 30.4 pg (26.0-34.0); MCHC 33.6 g/dL (31.0-37.0); MCV 90.4 fL (80.0-100.0); MEAN PLATELET VOLUME 10.4 fL (7.4-10.4); MONOCYTES 2.1 % (2-11); NEUTROPHIL ABS# 6.69 10x3/uL (1.78-5.38); NEUTROPHILS 92.7 % (40-80); RBC 4.15 10x6/uL (4.20-6.10); RDW 15.4 % (11.5-14.5); WBC 7.2 10x3/uL (4.8-10.8)
[2020-12-30 13:57] LABS: PLATELET COUNT 173 10x3/uL (130-400)
[2020-12-30 15:31] LABS: ERYTHROCYTE SEDIMENTATION RATE 87 mm/hr (0-20)
== END | disposition home or self-care (01) ==
LOC: D.LABREF 13:12
PROVIDERS: ATTEND Clinical Nurse Specialist Family Health
DX: L97.529 Non-pressure chronic ulcer of other part of left foot with unspecified severity (principal)

== ENCOUNTER 2021-01-02 14:56 | Inpatient (IN) | payer OTHER ==
[~2021-01-02] VITALS: Ht 185.4 cm; Wt 136.1 kg
--- NOTE | ~2021-01-02 | OP ---
PATIENT NAME: OLIVIA JOLLY JR MEDICAL RECORD: [id number] :[birth year] LOCATION:D. D.2120 ADMISSION DATE:01/02/21 SURGEON: CARLYN CASTILLO MD DATE OF OPERATION: 01/03/2021 PREOPERATIVE DIAGNOSES: 1. Diabetic left foot infection. 2. Osteomyelitis, left foot. 3. Necrotizing fasciitis, left lower extremity. POSTOPERATIVE DIAGNOSES: 1. Diabetic left foot infection. 2. Osteomyelitis, left foot. 3. Necrotizing fasciitis, left lower extremity. PROCEDURE PERFORMED: 1. Left open below-knee amputation. 2. Application of wound VAC, left lower extremity (greater than 50 cm-squared). INDICATIONS FOR THE PROCEDURE: Mr. Jolly is a 55-year-old male with history of diabetes and Charcot arthropathy of the left foot. He has a Benjamin fracture that had been treated in May of last year by Dr. Glass. He eventually underwent hardware removal and then has been dealing with the wound to the foot, which eventually healed. He returned to clinic last week with the plantar wound and some drainage and there was concern for possible deep infection. He was not interested in any surgical procedures and was referred to Dr. Solomon for further management. Over the weekend, his foot acutely worsened with erythema, redness, drainage and swelling. He was also having altered mental status. He presented to the Emergency Department where he was noted to have a left foot infection with osteomyelitis and concern for necrotizing fasciitis. He was taken to the operating room last night by Dr. Solomon for I&D of the foot. Tissues over the dorsal foot are now black and discolored with erythema extending into the lower leg. I talked with his about his condition and the need for amputation. This will be performed in a staged manner beginning with open below-knee amputation and then returning for eventual formalization. Risks, benefits and alternatives of surgery were discussed with the patient and his and consent was obtained. DESCRIPTION OF PROCEDURE: The patient was met in the holding area where his identity and confirmation of the procedure was performed. Left lower extremity was marked. He was taken to the operating room where he was placed supine on the operating table and anesthesia was administered. Tourniquet was applied to the left thigh and the left leg was prepped and draped in a sterile fashion. The patient was on scheduled antibiotics; therefore, did not receive any immediately preop. A timeout was performed before initiating the case. On initiation of the case, an incision was made circumferentially around the ankle. We were planning to perform open ankle disarticulation. On incising through the tendons around the ankle, pus was noted to be tracking along the tendons. We therefore removed approximately 5 cm proximal, again incised circumferentially and upon entering the anterior compartment as well as posterior around the Achilles there was pus continuing to exude from around the tendons. We then removed another 5 cm proximal and encountered the same problem just at the anterior compartment. The posterior compartment appeared to be okay. We therefore elected to go ahead and perform our approach for a below-knee amputation as this would be able to debride the anterior compartment OPERATIVE REPORT [id number] OLIVIA JOLLY JR and hopefully salvage the posterior flap to remain below-knee amputation. Extending approximately 20 cm below the joint line, we were able to transect the tibia and fibula, did not note any drainage from around the anterolateral compartments. The tissues were removed from the leg. The vascular bundles were identified and the deep posterior vascular bundle did have a small amount of purulence from around the sheath. This was expressed and we continued to dissect around it proximally, but did not appreciate any further drainage from this area and we therefore elected to remain at this level. The vascular bundles were identified and tagged. These were then ligated with 0 silk ties. The tourniquet was then let down and hemostasis was obtained with cautery. The vascular bundles appeared to be well ligated. The wound was irrigated thoroughly with saline. The wound VAC was then applied to the wound measuring 20 x 7 cm. The suture was placed through the anterior tissue, the flap, and was pulled up over the wound VAC to approximate the tissues. The wound VAC was placed and noted to have good compression. This was confirmed on the machine in the operating room. This was then covered with a sterile dressing and that completed our procedure. He was turned back over to anesthesia where he was awakened, extubated, and taken to recovery room in stable condition. POSTOPERATIVE PLAN: The patient is going to return to the floor for continued postoperative care. We will continue his IV antibiotics and monitor his leg for any worsening signs and symptoms of infection. Plan; return to the operating room later this week for repeat I&D. COMPLICATIONS: None. ESTIMATED BLOOD LOSS: 100 mL. ANESTHESIA: General. TRANSINT:[id number] Voice Confirmation ID: [id number] DOCUMENT ID: [id number] CARLYN CASTILLO MD CC: [id number] DICTATION DATE: 01/04/21 0002 HEALTH CENTER ASSOCIATE: 01/04/21 1046 ADM IN [facility] [place] [id number] [place] [address]
--- NOTE | ~2021-01-02 | OP ---
PATIENT NAME: OLIVIA VILLEGAS JR MEDICAL RECORD: [id number] :63 LOCATION:D. D.2120 ADMISSION DATE:01/02/21 SURGEON: CARLYN CASTILLO MD DATE OF OPERATION: 01/05/2021 PREOPERATIVE DIAGNOSES: 1. Necrotizing fasciitis, left lower extremity. 2. Diabetic left foot infection, status post open below-knee amputation. POSTOPERATIVE DIAGNOSES: 1. Necrotizing fasciitis, left lower extremity. 2. Diabetic left foot infection, status post open below-knee amputation. PROCEDURE PERFORMED: 1. Irrigation and debridement left leg wound (skin, subcutaneous tissue, muscle, bone). 2. Application of wound VAC, left lower extremity (greater than 50 cm-squared). INDICATIONS FOR THE PROCEDURE: Mr. Villegas is a 55-year-old male with a history of diabetic left foot infection and osteomyelitis. He began developing redness and swelling in the leg and was taken urgently to the operating room Sunday evening for open amputation. At that point, we noticed purulence extending up the leg with evidence of necrotizing fasciitis. An open below-knee amputation was performed and there was just a small amount of purulence in the posterior vascular bundle at the completion of the procedure. Wound was irrigated thoroughly and the extremity was left open and closed over a wound VAC. His condition has been improving and he returns to the operating room today for repeat I&D with wound VAC change. Risks, benefits and alternatives of surgery were discussed with the patient and consent was obtained. DESCRIPTION OF PROCEDURE: The patient was met in the holding area where his identity and confirmation of procedure was performed. The left lower extremity was marked and he was taken to the operating room. He was placed supine on the operating table. Anesthesia was administered. Tourniquet was applied to the left leg and left leg was prepped and draped in a sterile fashion. The patient is on scheduled antibiotics, therefore, did not receive any immediately preop. A timeout was performed before initiating the case. On initiation of the case, the leg was gravity exsanguinated and the tourniquet was raised. Total tourniquet time was 14 minutes. The wound was explored, did not have any evidence of deep purulence. All the tissues appeared to be clean and healthy. The posterior vascular bundle was explored and again did not appear to have any evidence of purulence. Wound was irrigated thoroughly with saline. The tourniquet was then let down and hemostasis was obtained. Wound VAC was then applied to the wound measuring 20 x 7 cm. We were noted to have good compression and the leg was then covered with the sterile dressing. The patient was turned back over to anesthesia where he was awakened, extubated, and taken to the recovery room in stable condition. The patient tolerated the procedure well with no complications. PLAN: The patient is going to return to the floor for continued postoperative care. We will continue his IV antibiotics and plan return to the operating room later this week for formalization of the amputation. COMPLICATIONS: None. OPERATIVE REPORT [id number] OLIVIA VILLEGAS JR ESTIMATED BLOOD LOSS: 25 mL. ANESTHESIA: General. TRANSINT:[id number] Voice Confirmation ID: [id number] DOCUMENT ID: [id number] CARLYN CASTILLO MD CC: [id number] DICTATION DATE: 01/05/211505 INSECT CONTROL AIDE: 01/05/21 2219 ADM IN [facility] [address] [place] [address]
--- NOTE | ~2021-01-02 | OP ---
PATIENT NAME: OLIVIA VILLEGAS JR MEDICAL RECORD: [id number] :63 LOCATION:D. D.2120 ADMISSION DATE:01/02/21 SURGEON: CARLYN CASTILLO MD DATE OF OPERATION: 01/07/2021 PREOPERATIVE DIAGNOSES: 1. Necrotizing fasciitis, left lower extremity. 2. Diabetic left foot infection, status post open BKA. POSTOPERATIVE DIAGNOSES: 1. Necrotizing fasciitis, left lower extremity. 2. Diabetic left foot infection, status post open BKA. PROCEDURE PERFORMED: Left below-knee amputation. INDICATIONS: Mr. Villegas is a 55-year-old male with a history of necrotizing fasciitis and diabetic foot infection of the left lower extremity. He presented with redness and drainage from the leg and altered mental status. He was taken urgently to the operating room earlier this week for open BKA with wound VAC placement. His condition has improved and the infection appears to have cleared. He returns today for formalization of the amputation. Risks, benefits and alternatives of surgery were discussed with the patient and consent was obtained. DESCRIPTION OF PROCEDURE: The patient was met in the holding area where his identity and confirmation of procedure was performed. Left lower extremity was marked. He was taken to the operating room where he was placed supine on the operating table. Anesthesia was administered. Tourniquet was applied to the left thigh and left leg was prepped and draped in a sterile fashion. The patient is on scheduled antibiotics; therefore, did not receive any immediately preop. A timeout was performed prior to initiating the case. On initiation of the case, the leg was gravity exsanguinated and the tourniquet was raised. Total tourniquet time was 33 minutes. The wound was again explored and did not show any evidence of gross infection. We will continue with our plan for formalization of the amputation. We marked our level at 15 cm below the joint line and incised through the skin and subcutaneous tissue, dissected down to the fascial layers to create our flaps for this level of closure. The tibia was isolated and retractors were placed around the tibia. It was then saw just proximal to our skin and fascial level. The fibula was then isolated and saw proximal to the tibia. The anterior edge of the tibia was also removed with the saw and then smoothed at the edges. The remainder of the tibia/fibula and surrounding soft tissues were removed with the anterior flap. The vascular bundles were identified and tagged. These were tied off with 0 silk suture. The deep posterior compartment was removed and its vascular bundle was also tied off with 0 silk suture. The remainder of the muscles were debulked to allow for flap closure. The wound was irrigated thoroughly with saline. Once we were pleased with our level of transection, we began with closure. The posterior flap was brought up and the fascia from the gastroc/soleus was reapproximated to the anterior fascia. It was then trimmed to fit this level and the skin was also trimmed for closure. The posterior fascia was closed with 0 Vicryl suture. We were pleased with our surgical closure circumferentially. The sural nerve was identified at the posterior skin flap. Traction was applied and it was transected. We then began with the skin closure. Skin was brought up centrally and then reapproximated at the edges. The skin was trimmed along this process to provide good fit and closure. The subcutaneous skin was closed with 2-0 OPERATIVE REPORT [id number] OLIVIA VILLEGAS JR Vicryl and the skin itself was closed with nylon. Sterile dressing was placed. The patient was turned back over to anesthesia where he was awakened, extubated, and taken to recovery room in stable condition. POSTOPERATIVE PLAN: The patient is going to return to the floor for continued postoperative care. We will continue his IV antibiotics and plan for dressing change on Sunday. We will also need to have him fitted for a stump protector. COMPLICATIONS: None. ESTIMATED BLOOD LOSS: 500 mL. ANESTHESIA: General. TRANSINT:[id number] Voice Confirmation ID: [id number] DOCUMENT ID: [id number] CARLYN CASTILLO MD CC: [id number] DICTATION DATE: 01/07/21 160 APARTMENT LEASING SPECIALIST: 01/08/21 0306 ADM IN [facility] [address] [place] [address]
[~2021-01-02 14:56] MED LIST changes: -ADOXA100 MG PO; +ZALEPLON PO; -[UNRECOGNIZED DRUG - OTHER] PO
[2021-01-02 16:00] LABS: APTT 53.2 SECONDS (22.8-39.4); BASOPHILS 0.1 % (0-2); EOSINOPHILS 0.2 % (0-7); HEMATOCRIT 37.1 % (42.0-54.0); HEMOGLOBIN 12.5 g/dL (13.5-17.5); IMMATURE GRANULOCYTES 5.5 % (0-5); LYMPHOCYTE ABS# 0.47 10x3/uL (1.32-3.57); LYMPHOCYTES 4.9 % (15-50); MCH 29.7 pg (26.0-34.0); MCHC 33.7 g/dL (31.0-37.0); MCV 88.1 fL (80.0-100.0); MONOCYTES 7.2 % (2-11); NEUTROPHILS 82.1 % (40-80); PLATELET COUNT 99 10x3/uL (130-400); PROTIME 21.1 SECONDS (11.6-15.0); RBC 4.21 10x6/uL (4.20-6.10); RDW 16.2 % (11.5-14.5); WBC 9.5 10x3/uL (4.8-10.8)
[2021-01-02 16:15] LABS: PLATELET ESTIMATE DECREASED
[2021-01-02 16:21] LABS: CALC OSMOLALITY 289 mosm/kg (275-300); CALCIUM 8.9 mg/dL (8.5-10.1); CARBON DIOXIDE 17.1 mmol/L (21.0-32.0); CHLORIDE - SERUM 97 mmol/L (98-107); CREATININE - SERUM 5.6 mg/dL (0.6-1.3); POTASSIUM - SERUM 4.8 mmol/L (3.5-5.1); SODIUM 128 mmol/L (136-145); UREA NITROGEN 80 mg/dL (7-18); eGFR NON AFRICAN AMERICAN 11 mL/min (90-120)
[2021-01-02 16:22] LABS: GLUCOSE 254 mg/dL (74-106)
[2021-01-02 16:46] LABS: ALBUMIN 2.1 g/dL (3.4-5.0); ALKALINE PHOSPHATASE 73 U/L (30-120); ALT (SGPT) 65 U/L (10-68); BILIRUBIN - TOTAL 1.27 mg/dL (0.2-1.3); CKMB 0.4 U/L (0.0-3.6); CREATINE KINASE 49 UL (21-232); PROTEIN - SERUM 6.8 g/dL (6.4-8.2)
[2021-01-02 16:48] LABS: TROPONIN-I < 0.017 ng/mL (0.000-0.060)
[2021-01-02 20:00] VITALS: BP 153/79
[2021-01-02 21:40] VITALS: BP 153/79; BMI 39.6
--- NOTE | 2021-01-02 22:10 | NUR ---
PT ARRIVED VIA STRETCHER FROM [facility] AT 1915 HRS. ASSISTED TO BED. PT CONFUSED, ORIENTED TO PERSON AND PLACE. KNOWS HE IS HERE BECAUSE HIS FOOT IS BAD. REOREINTED TO TIME. IV TO R HAND WITH NS AT 125CC/HR. L FOOT SWOLLEN AND OOZING PINK EXUDATE. INFORMED PT TO USE URINAL AND NOT TO GET UP. PT FOUND IN BR 10 MINUTES LATER. GAIT UNSTEADY. IV OUT. ASSISTED BACK TO BED. MO MAT ALARM PLACED ON BED. NEW IV STARTED #20 TO RFA WITH ATTEMPT X1. PT TOLERATED ACTIVITY WELL. DR LYNN HERE AT [address] LYNN STATED HE NEEDS TO I&D PT'S FOOT IN OR. ATTEMPTED TO CALL PT'S SEVERAL TIMES BUT VOICE RECORDING STATES THAT PERSON NOT ACEPTING CALLS A THIS TIME. DR LYNN SPOKE WIHT PT AT [facility] AND PT AGREES TO SURGERY ON HIS FOOT. PT STATES HE KNOWS HIS FOOT IS BAD. PM FSBS 134. NO COVERAGE NEEDED. ATTEMPTED TO CALL PT'S AT 2210 HRS WITH SAME RESULTS. PT CURRENTLY RESTING WITH EYES CLOSED. RESP EVEN AND REGULAR. SR UP X2, CALL LIGHT WITHIN REACH AND BED ALRM ON.
--- NOTE | 2021-01-02 22:29 | NUR ---
ATTEMPED TO CALL . RECORDING STATES PERSON NOT ACCEPTING CALLS AT THIS TIME.
--- NOTE | 2021-01-02 22:57 | NUR ---
CALLED AT THIS TIME. DR LYNN SPEAKING TO AT THIS TIME. VERBAL AGREEMENT FOR SURGERY GIVEN TO DR. LYNN. HOME NUMBER [phone]. TO OR VIA STRETCHER.
--- NOTE | 2021-01-02 23:47 | NUR ---
PATIENT VERY CONFUSED. CONFIRMED CONSENT WITH . OPEN DRAINING WOUNDS FROM FOOT WITH ODOROUS SMELL.
--- NOTE | 2021-01-03 00:09 | NUR ---
DOG HAIR PRESENT ON BOTTOM OF OPEN WOUNDED FOOT.
--- NOTE | 2021-01-03 01:18 | NUR ---
PT BACK FROM OR. VSS. PT OPENS EYES TO VERBAL STIMULI. DENIES ANY DISCOMFORT. O2 SAT 91% ON RA. O2 2LNC PLACED.
--- NOTE | 2021-01-03 02:20 | NUR ---
VSS. AFEBRILE. PT AWAKE; KNOWS WHO HE IS, HIS 'S NAME AND THAT HIS FOOT IS BAD. REORIENTED TO PLACE, TIME AND SITUATION. PT DENIES NEED TO URINATE. SR UP X2, CALL LIGHT WITHIN REACH AND BED ALARM ON.
--- NOTE | 2021-01-03 03:31 | NUR ---
PT VOIDED 300CC OF BLOOD TINGED URINE. AND THEN APPROX 20CC OF SATHYA BLOOD. PT STATES HE HAS PROSTATE PROBLEMS. UA SENT TO LAB.
--- NOTE | 2021-01-03 04:27 | NUR ---
PT TACHYPENIC AT 0415 RATE 36 WITH WHEEZING NOTED. O2 SAT 95% ON 2LNC. BP 165/95. HR [address] ST[address] TEMP 97.9 ORAL. PT'S FACE RED AND NOT FOLLOWING COMMANDS. RAPID RESPONSE CALLED AT 0420 HRS.
[2021-01-03 04:36] LABS: BILIRUBIN NEGATIVE (NEGATIVE); KETONE NEGATIVE (NEGATIVE); NITRITE NEGATIVE (NEGATIVE); UROBILINOGEN NORMAL mg/dL (< 2)
[2021-01-03 04:38] LABS: BACTERIA MODERATE HPF (NONE SEEN); SQUAMOUS EPITHELIAL 0-5 HPF (0-4)
[2021-01-03 04:46] LABS: BASOPHILS 0.5 % (0-2); EOSINOPHILS 0 % (0-7); HEMATOCRIT 37.3 % (42.0-54.0); HEMOGLOBIN 12.1 g/dL (13.5-17.5); IMMATURE GRANULOCYTES 0.8 % (0-5); LYMPHOCYTES 5.1 % (15-50); MCH 29.5 pg (26.0-34.0); MCHC 32.4 g/dL (31.0-37.0); MONOCYTES 5.8 % (2-11); NEUTROPHIL ABS# 8.65 10x3/uL (1.78-5.38); NEUTROPHILS 87.8 % (40-80); PLATELET COUNT 95 10x3/uL (130-400); RDW 16.6 % (11.5-14.5); WBC 9.9 10x3/uL (4.8-10.8)
--- NOTE | 2021-01-03 04:54 | NUR ---
Lonnie HEATR APN NOTIFIED OF PT'S CONDITION AND RAPID RESPONSE CALLED. NEW ORSERS RECEIVED AND NOTED. BLADDER SCAN DONE WITH 361 RESIDUAL NOTED. PT VOIDED 500CC OF DARK URINE AFTER BLADDER SCAN.
--- NOTE | 2021-01-03 05:06 | NUR ---
TO CT VIA BED.
[2021-01-03 05:16] LABS: INR 1.91 (0.85-1.17); PROTIME 20.3 SECONDS (11.6-15.0)
[2021-01-03 05:18] LABS: ALBUMIN 1.9 g/dL (3.4-5.0); BILIRUBIN - TOTAL 1.32 mg/dL (0.2-1.3); CALCIUM 8.6 mg/dL (8.5-10.1); CARBON DIOXIDE 16.1 mmol/L (21.0-32.0); CREATININE - SERUM 4.9 mg/dL (0.6-1.3); MAGNESIUM - SERUM 2.8 mg/dL (1.8-2.4); PHOSPHOROUS 4.3 mg/dL (2.5-4.9); PROTEIN - SERUM 7.5 g/dL (6.4-8.2); THYROID STIMULATING HORMONE 5.39 uIU/mL (0.36-3.74)
[2021-01-03 05:33] LABS: APTT 37.3 SECONDS (22.8-39.4)
[2021-01-03 05:35] LABS: ANION GAP 23.6 mmol/L (8-16); POTASSIUM - SERUM 5.7 mmol/L (3.5-5.1)
[2021-01-03 05:58] LABS: VANCOMYCIN - RANDOM 0.5 ug/mL (10.0-20.0)
--- NOTE | 2021-01-03 06:44 | NUR ---
PT BACK FROM CT AT 0530 HRS. VSS.
--- NOTE | 2021-01-03 06:46 | NUR ---
AM FSBS 213. 4 UNITS REG INSULIN GIVEN SUB-Q TO UPPER L ARM. PT SWALLOWED AM MED WITHOUT DIFFICULTIES. SR UP X2, CALL LIGHT WITHIN REACH, BED ALARM ON.
--- NOTE | 2021-01-03 07:20 | NUR ---
RECIEVE REPORT. RESTING IN BED WITH EYES CLOSED. SINUS TACH 109 ON TELEMETRY. NO SIGNS OF DISTRESS. CONTINUE PLAN OF CARE AND SAFETY PRECAUTIONS.
[2021-01-03 09:00] VITALS: BP 158/76
[2021-01-03 10:11] LABS: ANION GAP 18.8 mmol/L (8-16); CALCIUM 8.9 mg/dL (8.5-10.1); CARBON DIOXIDE 19.5 mmol/L (21.0-32.0); CREATININE - SERUM 4.5 mg/dL (0.6-1.3); POTASSIUM - SERUM 5.3 mmol/L (3.5-5.1)
[2021-01-03] MEDS ORDERED: ADOXA100 MG PO (11:10)
[2021-01-03] MEDS ORDERED: BACTRIM DS TAB1 EAC1 PO (11:11)
--- NOTE | 2021-01-03 11:30 | NUR ---
LETHARGIC, AROUSES TO STIMULI. PATTERSON CATHETER PLACED 16F. BULB INFLATED WITH 10ml SALINE. SCANT CLOTS SEEN. BED BATH AND LINEN CHANGE COMPLETE. LT FOOT DRESSING CHANGED. CONSENTS FOR PROCEDURE OBTAINED VIA TELEPHONE FROM [facility]. CONTINUE PLAN OF CARE AND SAFETY PRECAUTIONS.
[2021-01-03 12:53] VITALS: Ht 185.4 cm; Wt 136.1 kg
[2021-01-03 13:35] VITALS: BP 154/85
[2021-01-03 13:56] LABS: ERYTHROCYTE SEDIMENTATION RATE 107 mm/hr (0-20)
--- NOTE | 2021-01-03 19:50 | NUR ---
DR VILLAFANA AT BED SIDE, DRSG TO LEFT FOOT CHANGED.
[2021-01-03 20:00] VITALS: BP 159/89
--- NOTE | 2021-01-03 21:14 | NUR ---
SPOKE WITH PTS , INFORMED HER THAT PT HAS NOT BEEN TAKEN TO SURGERY YET AND THIS NURSE WILL CALL HER WHEN HE LEAVES THE FLOOR AND IS HEADED TO O.R.
--- NOTE | 2021-01-03 22:18 | NUR ---
PT LEFT TO O.R. VIA BED WITH SURGERY STAFF, NOTIFIED.
--- NOTE | 2021-01-03 23:42 | NUR ---
ANESTHEISA HALLE GAVE VERBAL ORDER FOR DILADID 0.5MG EVERY 3 MINTUES UP TO 2MG TOTAL. V.O READ BACK CORRECT
--- NOTE | 2021-01-04 00:31 | NUR ---
BACK TO ROOM FROM O.R. PT RESTING WELL, VITALS STABLE. LEFT BKA WITH WOUND VAC NOTED. INFORMED BY PACU NURSE THAT DR CASTILLO HAS ALREADY SPOKE WITH THE PTS . BED ALARM TURNED BACK ON, BED LOW, CL IN REACH.
--- NOTE | 2021-01-04 03:48 | NUR ---
I have reviewed this patient and I concur with the Shift Assessment completed by the Licensed Practical Nurse today this shift.
[2021-01-04 04:00] VITALS: BP 155/85
[2021-01-04 05:57] LABS: BASOPHILS 0.3 % (0-2); EOSINOPHILS 0 % (0-7); HEMATOCRIT 33.2 % (42.0-54.0); HEMOGLOBIN 10.9 g/dL (13.5-17.5); LYMPHOCYTE ABS# 0.92 10x3/uL (1.32-3.57); MCH 29.8 pg (26.0-34.0); MCHC 32.8 g/dL (31.0-37.0); MCV 90.7 fL (80.0-100.0); MEAN PLATELET VOLUME 10.6 fL (7.4-10.4); MONOCYTES 6.3 % (2-11); NEUTROPHIL ABS# 8.95 10x3/uL (1.78-5.38); NEUTROPHILS 77.4 % (40-80); PLATELET COUNT 90 10x3/uL (130-400); RBC 3.66 10x6/uL (4.20-6.10); RDW 16.9 % (11.5-14.5); WBC 11.6 10x3/uL (4.8-10.8)
[2021-01-04 06:11] LABS: ALBUMIN 1.7 g/dL (3.4-5.0); ANION GAP 19.2 mmol/L (8-16); BILIRUBIN - TOTAL 0.78 mg/dL (0.2-1.3); CALCIUM 8.4 mg/dL (8.5-10.1); CARBON DIOXIDE 19.8 mmol/L (21.0-32.0); CREATININE - SERUM 3.5 mg/dL (0.6-1.3); MAGNESIUM - SERUM 2.6 mg/dL (1.8-2.4); VANCOMYCIN - RANDOM 7.7 ug/mL (10.0-20.0)
[2021-01-04 06:13] LABS: C-REACTIVE PROTEIN 23.4 mg/dL (0.0-0.9)
--- NOTE | 2021-01-04 07:20 | NUR ---
RECIEVE REPORT. RESTING BED WITH EYES CLOSED. LT LEG WOUND VAC FREE FROM LEAKS. CONTINUE PAIN MANAGEMENT ORDERED. SINUS RYTHM ON TELEMETRY. CONTINUE PLAN OF CARE AND SAFETY PRECAUTIONS.
[2021-01-04 07:39] VITALS: BP 149/79
[2021-01-04 11:54] VITALS: BP 150/83
[2021-01-04 15:49] VITALS: BP 129/69
--- NOTE | 2021-01-04 17:00 | NUR ---
ALERT AND ORIENTED X3. SITTIN UP IN BED. FAMILY AT BEDSIDE. SINUS RYTHM ON TELEMETRY. WOUND VAC TO LT LEG INTACT FREE FROM AIR LEAKS. DENIES ANY NEEDS. CONTINUE PLAN OF CARE AND SAFETY PRECAUTIONS.
--- NOTE | 2021-01-04 17:02 | NUR ---
OT NOTE: PT COMPLETED BUE AROM EXERCISES. PT COMPLETED ORAL HYGIENE WITH SETUP PT COMPLETED UB HYGIENE WITH SETUP. [phone] THANK YOU,JUDITH WOLF
[2021-01-04 20:00] VITALS: BP 148/63
[2021-01-05] VITALS: BP 173/83
--- NOTE | 2021-01-05 01:52 | NUR ---
I have reviewed this patient and I concur with the Shift Assessment completed by the Licensed Practical Nurse today this shift.
[2021-01-05 04:00] VITALS: BP 172/87
[2021-01-05 04:43] LABS: BASOPHILS 0.3 % (0-2); EOSINOPHILS 0.5 % (0-7); HEMATOCRIT 32.3 % (42.0-54.0); HEMOGLOBIN 10.3 g/dL (13.5-17.5); IMMATURE GRANULOCYTES 11.7 % (0-5); LYMPHOCYTE ABS# 1.12 10x3/uL (1.32-3.57); MCHC 31.9 g/dL (31.0-37.0); MONOCYTES 8.4 % (2-11); NEUTROPHIL ABS# 6.28 10x3/uL (1.78-5.38); NEUTROPHILS 67.1 % (40-80); PLATELET COUNT 73 10x3/uL (130-400); RBC 3.55 10x6/uL (4.20-6.10); RDW 16.2 % (11.5-14.5); WBC 9.4 10x3/uL (4.8-10.8)
[2021-01-05 04:52] LABS: PLATELET ESTIMATE DECREASED
[2021-01-05 05:11] LABS: ALBUMIN 1.8 g/dL (3.4-5.0); ANION GAP 13.5 mmol/L (8-16); BILIRUBIN - TOTAL 0.63 mg/dL (0.2-1.3); C-REACTIVE PROTEIN 7.9 mg/dL (0.0-0.9); PHOSPHOROUS 3.4 mg/dL (2.5-4.9); POTASSIUM - SERUM 4.5 mmol/L (3.5-5.1); PROTEIN - SERUM 6.9 g/dL (6.4-8.2)
[2021-01-05 05:28] LABS: CREATININE - SERUM 2.5 mg/dL (0.6-1.3); VANCOMYCIN - RANDOM 10.7 ug/mL (10.0-20.0)
[2021-01-05 08:00] VITALS: BP 148/83
--- NOTE | 2021-01-05 11:16 | NUR ---
PT PREOP FOR SURGERY. PATTERSON EMPTIED. HAS BEEN NPO.
--- NOTE | 2021-01-05 14:32 | NUR ---
PATIENT GRIMACING. STATES 8/10 PAIN AFTER 25 DEM AND 25 DIL. HE IS TAKING DEEP BREATHS AND TRYING TO RELAX. BP ELEVATED. HR AND SPO2 WNL
[2021-01-05 14:50] VITALS: BP 168/72
[2021-01-05 15:00] VITALS: BP 170/76
--- NOTE | 2021-01-05 15:06 | NUR ---
PT BACK TO ROOM FROM PACU. LITTLE GROGGY BUT STILL COMPLAINING OF PAIN. DRESSING TO LLE CLEAN AND DRY. WOUND VAC IN PLACE. EATING ICE CHIPS NOW.
[2021-01-05 20:42] VITALS: BP 152/80
[2021-01-06] VITALS: BP 162/86
--- NOTE | 2021-01-06 02:40 | NUR ---
I have reviewed this patient and I concur with the Shift Assessment completed by the Licensed Practical Nurse today this shift.
[2021-01-06 04:00] VITALS: BP 149/69
[2021-01-06 06:00] LABS: BASOPHILS 0.2 % (0-2); EOSINOPHILS 0.2 % (0-7); HEMATOCRIT 31.5 % (42.0-54.0); IMMATURE GRANULOCYTES 11.7 % (0-5); LYMPHOCYTE ABS# 1.11 10x3/uL (1.32-3.57); LYMPHOCYTES 10.5 % (15-50); MCHC 31.7 g/dL (31.0-37.0); MCV 91.3 fL (80.0-100.0); MEAN PLATELET VOLUME 10.9 fL (7.4-10.4); MONOCYTES 9.5 % (2-11); NEUTROPHIL ABS# 7.17 10x3/uL (1.78-5.38); NEUTROPHILS 67.9 % (40-80); PLATELET COUNT 86 10x3/uL (130-400); RBC 3.45 10x6/uL (4.20-6.10); RDW 15.4 % (11.5-14.5); WBC 10.6 10x3/uL (4.8-10.8)
[2021-01-06 06:20] LABS: ALBUMIN 1.9 g/dL (3.4-5.0); ANION GAP 12.5 mmol/L (8-16); BILIRUBIN - TOTAL 0.51 mg/dL (0.2-1.3); C-REACTIVE PROTEIN 3.9 mg/dL (0.0-0.9); CALCIUM 7.7 mg/dL (8.5-10.1); CARBON DIOXIDE 25.8 mmol/L (21.0-32.0); MAGNESIUM - SERUM 1.9 mg/dL (1.8-2.4); PHOSPHOROUS 3.4 mg/dL (2.5-4.9); POTASSIUM - SERUM 5.3 mmol/L (3.5-5.1); PROTEIN - SERUM 6.9 g/dL (6.4-8.2); VANCOMYCIN - RANDOM 11.8 ug/mL (10.0-20.0)
--- NOTE | 2021-01-06 07:13 | NUR ---
RECEIVE BEDSIDE SHIFT REPORT. SITTING UP IN BED WITH TV ON. STATES HE WOULD LIKE ANOTHER BED HIS CONTROLS ARE NOT WORKING. STATES HE HAS BEEN SITTING SCRUNCHED UP ALL NIGHT. WILL GET ASSISTANCE FOR TRANSFER TO ANOTHER BED. LEFT BKA. ALERT AND ORIENTED X4. CALL LIGHT IN REACH. WILL CONTINUE POC AND SAFETY PRECAUTIONS.
[2021-01-06 08:27] VITALS: BP 166/72
--- NOTE | 2021-01-06 12:13 | NUR ---
Nutrition Follow-up: POD 3 L BKA. POD 1 I&D L leg & wound vac placement. Poor appetite/PO intake this AM. Denies N/V/C/D, chewing/swallowing difficulties. C/o gas pains. Diet: Diabetic No new wt; last wt: 300# (01/03) Last BM: 01/05 Labs noted: Na 133, K+ 5.3, BUN 37, Cre 2.0, GFR 37, Glu 215, Ca 7.7, CRP 3.9, Alb 1.9 Meds noted: Colace, Florajen, Pepcid, Humulin, Lantus, electrolyte protocol -Encourage PO intake and honor food preferences within diet restrictions. Will monitor K+; may need to limit if remains elevated. -Offer nutrition supplements. -Need new wt. -RD will follow up by 01/11.
[2021-01-06 12:24] VITALS: BP 148/79
--- NOTE | 2021-01-06 14:38 | NUR ---
OT NOTE:(AM) PT REQUIRED MIN-MOD A FOR BED MOBILITY. PT REQUIRED MOD-MAX FOR SIT TO STAND FOR INCREASED SAFETY. PT COMPLETED TRICEP EXTENSIONS WITH FUNCTIONAL TASKS. (PM) PT REQUIRED MOD-MAX A FOR SIT TO STAND. PT REQUIRED MAX A FOR CHAIR TO BED TSF. PT COMPLETED BUE AROM WITH WALKER MANAGEMENT. PT DID WELL. [phone] THANK YOU,JUDITH WOLF
[2021-01-06 17:01] VITALS: BP 156/73
[2021-01-06 20:04] VITALS: BP 149/73
[2021-01-07 04:20] VITALS: BP 143/72
[2021-01-07 06:10] LABS: ANION GAP 12.5 mmol/L (8-16); BILIRUBIN - TOTAL 0.44 mg/dL (0.2-1.3); C-REACTIVE PROTEIN 2.3 mg/dL (0.0-0.9); CALCIUM 7.8 mg/dL (8.5-10.1); CARBON DIOXIDE 25.1 mmol/L (21.0-32.0); CREATININE - SERUM 1.7 mg/dL (0.6-1.3); MAGNESIUM - SERUM 1.8 mg/dL (1.8-2.4); PHOSPHOROUS 3.4 mg/dL (2.5-4.9); POTASSIUM - SERUM 4.6 mmol/L (3.5-5.1); PROTEIN - SERUM 6.8 g/dL (6.4-8.2); VANCOMYCIN - RANDOM 11.5 ug/mL (10.0-20.0)
[2021-01-07 06:13] LABS: HEMATOCRIT 32.2 % (42.0-54.0); HEMOGLOBIN 10.2 g/dL (13.5-17.5); LYMPHOCYTE ABS# 1.63 10x3/uL (1.32-3.57); MCH 29.2 pg (26.0-34.0); MCHC 31.7 g/dL (31.0-37.0); MCV 92.3 fL (80.0-100.0); MEAN PLATELET VOLUME 11.6 fL (7.4-10.4); NEUTROPHIL ABS# 5.89 10x3/uL (1.78-5.38); RBC 3.49 10x6/uL (4.20-6.10); RDW 15.3 % (11.5-14.5); WBC 10.4 10x3/uL (4.8-10.8)
[2021-01-07 06:28] LABS: PLATELET COUNT 118 10x3/uL (130-400)
--- NOTE | 2021-01-07 07:05 | NUR ---
RECEIVE BEDSIDE SHIFT REPORT. RESTING IN BED WITH AT BEDSIDE. DENIES ANY NEEDS AT THIS TIME. ALERT AND ORIENTED. CONSENTS IN CHART FOR SURGERY TODAY. NPO SINCE MIDNIGHT. CALL LIGHT IN REACH. WILL CONTINUE POC AND SAFETY PRECAUTIONS.
[2021-01-07 08:23] VITALS: BP 148/86
[2021-01-07 11:51] VITALS: BP 162/68
[2021-01-07 12:55] LABS: ANISOCYTOSIS OCC; LYMPHOCYTES 21 % (15-50); MONOCYTES 13 % (2-11); NEUTROPHILS 57 % (40-80); PLATELET ESTIMATE DECREASED; ROULEAUX OCC
--- NOTE | 2021-01-07 14:40 | NUR ---
REHAB PRESCREENING UPDATE Difficulty with begining authorization. Call placed to career based intervention coordinator Nieves Earl [phone] ext. [phone] who is out of the office. Peyton returned call on her behalf who is looking for a solution to begin auth. We are awaiting return call for instructions. Thank you! Melissa Hurtado, UNDERWRITING INTERNSHIP [employer]
--- NOTE | 2021-01-07 15:22 | NUR ---
OT NOTE: PT COMPLETED BUE AROM EXS TOLERATED. PT COMPLETED FACE HYGIENE WITH SETUP. [phone] THANK YOU,JUDITH WOLF
--- NOTE | 2021-01-07 18:30 | NUR ---
RESTING IN BED WITH EYES CLOSED. AT BEDSIDE.
[2021-01-07 18:45] VITALS: BP 147/76
[2021-01-07 19:40] VITALS: BP 145/62
[2021-01-07 23:48] VITALS: BP 144/74
--- NOTE | 2021-01-07 23:52 | NUR ---
PT VOICES NO C/O OR CONCERNS FROM PROCEDURE TODAY. C/O PAIN BUT TOLERABLE. PT IS A&O, UTALIZES CALL LIGHT FOR ASSISTANCE.
[2021-01-08] VITALS (7 sets, daily range): BP systolic 100–148; BP diastolic 48–86
--- NOTE | 2021-01-08 01:48 | NUR ---
PT UP IN CHAIR SINCE 2299, TOLERATING WELL. NO S/S OF DISTRESS OBSERVED. DENIES NEEDS. ENCOURAGED USE OF CALL LIGHT FOR ASSISTANCE. WILL CTM.
[2021-01-08 04:50] LABS: BASOPHILS 0.1 % (0-2); EOSINOPHILS 0.1 % (0-7); HEMOGLOBIN 9.2 g/dL (13.5-17.5); IMMATURE GRANULOCYTES 10.6 % (0-5); LYMPHOCYTE ABS# 2.12 10x3/uL (1.32-3.57); LYMPHOCYTES 8.6 % (15-50); MCH 29.3 pg (26.0-34.0); MCHC 31.7 g/dL (31.0-37.0); MCV 92.4 fL (80.0-100.0); MEAN PLATELET VOLUME 11.1 fL (7.4-10.4); NEUTROPHIL ABS# 18.19 10x3/uL (1.78-5.38); NEUTROPHILS 73.6 % (40-80); PLATELET COUNT 249 10x3/uL (130-400); RBC 3.14 10x6/uL (4.20-6.10); RDW 15.2 % (11.5-14.5); WBC 24.7 10x3/uL (4.8-10.8)
[2021-01-08 05:38] LABS: ALBUMIN 2.2 g/dL (3.4-5.0); ANION GAP 14.8 mmol/L (8-16); BILIRUBIN - TOTAL 0.35 mg/dL (0.2-1.3); CALCIUM 7.8 mg/dL (8.5-10.1); CARBON DIOXIDE 22.7 mmol/L (21.0-32.0); CREATININE - SERUM 1.9 mg/dL (0.6-1.3); MAGNESIUM - SERUM 1.6 mg/dL (1.8-2.4); PHOSPHOROUS 3.7 mg/dL (2.5-4.9); POTASSIUM - SERUM 5.5 mmol/L (3.5-5.1); PROTEIN - SERUM 6.8 g/dL (6.4-8.2); VANCOMYCIN - RANDOM 15.7 ug/mL (10.0-20.0)
[2021-01-08 08:59] LABS: BASOPHILS 0.2 % (0-2); EOSINOPHILS 0.4 % (0-7); HEMATOCRIT 29.1 % (42.0-54.0); HEMOGLOBIN 9.3 g/dL (13.5-17.5); IMMATURE GRANULOCYTES 8.9 % (0-5); LYMPHOCYTE ABS# 2.92 10x3/uL (1.32-3.57); LYMPHOCYTES 11.8 % (15-50); MCH 29.4 pg (26.0-34.0); MCV 92.1 fL (80.0-100.0); MONOCYTES 6.8 % (2-11); NEUTROPHIL ABS# 17.76 10x3/uL (1.78-5.38); NEUTROPHILS 71.9 % (40-80); PLATELET COUNT 287 10x3/uL (130-400); RBC 3.16 10x6/uL (4.20-6.10); WBC 24.7 10x3/uL (4.8-10.8)
--- NOTE | 2021-01-08 09:25 | NUR ---
PT AWAKE AND OIRENTED, SITTING IN CHAIR BESIDE BED. ATTEMTPED TO START NEW I/V, UNSUCCEFULL AT THIS TIME. PT C/O STOMACH PAIN RELATED TO GAS, DENIES WANT FOR GASX AT THIS TIME D/T ORDER FOR KAYEXALATE. TOOK ALL PO MEDICATIONS WITHOUT COMPLICATIONS, NO COMPLAINTS OR CONCERNS AT THIS TIME. CL IN REACH, NO VISITORS AT THIS TIME.
--- NOTE | 2021-01-08 09:57 | NUR ---
I have reviewed this patient and I concur with the Shift Assessment completed by the Licensed Practical Nurse today this shift.
--- NOTE | 2021-01-08 14:13 | NUR ---
PT AWAKE AND ORIENTED, ADMINISTERED BED BATH. BACK IN BED. NO COMPLAINTS OR CONCERNS AT THIST [place]. CLIN REACH, SRX2.
--- NOTE | 2021-01-08 16:23 | NUR ---
PT LYING IN BED, NO COMPLAINTS OR CONCERNS AT THIS TIME. FAMILY HAS LEFT BEDSIDE. CL IN REACH, SRX2, EMPTIED 1000CC OUT OF PATTERSON CATHETER.
[2021-01-09 01:00] VITALS: BP 152/59
[2021-01-09 04:34] VITALS: BP 147/44
[2021-01-09 08:39] LABS: BASOPHILS 0.3 % (0-2); EOSINOPHILS 0.8 % (0-7); HEMATOCRIT 25.1 % (42.0-54.0); HEMOGLOBIN 7.9 g/dL (13.5-17.5); IMMATURE GRANULOCYTES 7.5 % (0-5); LYMPHOCYTE ABS# 1.73 10x3/uL (1.32-3.57); LYMPHOCYTES 14.7 % (15-50); MCH 29.5 pg (26.0-34.0); MCHC 31.5 g/dL (31.0-37.0); MCV 93.7 fL (80.0-100.0); MEAN PLATELET VOLUME 10.9 fL (7.4-10.4); MONOCYTES 10.6 % (2-11); NEUTROPHIL ABS# 7.76 10x3/uL (1.78-5.38); NEUTROPHILS 66.1 % (40-80); PLATELET COUNT 310 10x3/uL (130-400); RBC 2.68 10x6/uL (4.20-6.10); RDW 15.3 % (11.5-14.5)
[2021-01-09 08:46] LABS: CALCIUM 7.9 mg/dL (8.5-10.1); CARBON DIOXIDE 25.6 mmol/L (21.0-32.0); CREATININE - SERUM 1.8 mg/dL (0.6-1.3); POTASSIUM - SERUM 5.6 mmol/L (3.5-5.1)
[2021-01-09 08:50] LABS: WBC 11.7 10x3/uL (4.8-10.8)
[2021-01-09 08:51] VITALS: BP 153/73
[2021-01-09 08:52] LABS: ALBUMIN 2.3 g/dL (3.4-5.0); BILIRUBIN - TOTAL 0.37 mg/dL (0.2-1.3); PROTEIN - SERUM 6.2 g/dL (6.4-8.2)
[2021-01-09 12:25] VITALS: BP 145/63
--- NOTE | 2021-01-09 14:31 | NUR ---
PATTERSON CATH DCD 1400CC URINE OP AND 10CC BULB. WILL MONITOR OP.
[2021-01-09 16:45] VITALS: BP 138/50
--- NOTE | 2021-01-09 18:18 | MORECARE ---
CASE MANAGEMENT DISCHARGE SUMMARY PATIENT: OLIVIA JOLLY JR UNIT: [id number] ADM DATE: 01/02/21 AGE: 55 : 63 SEX: M ROOM/BED: D.[facility] AUTHOR: TRACE DE JESUS PHYSICIAN: REFERRING PHYSICIAN: ELY CARTAGENA MD DATE OF SERVICE: 01/09/21 Discharge Plan Patient Name: OILVIA JOLLY [facility] [facility] 1965 Planned Disposition: Inpatient Rehab Anticipated Discharge Date: Discharge Date: Expected LOS: Initial Reviewer: [email or web address] Initial Review Date: 01/02/2021 Generated: 01/09/21 7:18 pm Patient Name: OLIVIA JOLLY Page 81985 at 1818 All edits/amendments must be made on the electronic document DICTATION DATE: 01/09/211817 SENIOR INTERACTIVE PRODUCER: HARRISON 01/09/211817 RPT#: [id number] DC DATE: STATUS: ADM IN [facility] [address] [place] [address] END OF REPORT
--- NOTE | 2021-01-09 18:25 | MORECARE ---
CASE MANAGEMENT DISCHARGE SUMMARY PATIENT: OLIVIA JOLLY JR UNIT: [id number] ADM DATE: 01/02/21 AGE: 55 : 63 SEX: M ROOM/BED: D.2121 AUTHOR: NEALDOC PHYSICIAN: REFERRING PHYSICIAN: ELY CARTAGENA MD DATE OF SERVICE: 01/09/21 Discharge Plan Patient Name: OLIVIA JOLLY [facility] [facility] 1965 Planned Disposition: Inpatient Rehab Anticipated Discharge Date: Discharge Date: Expected LOS: Initial Reviewer: [email or web address] Initial Review Date: 01/02/2021 Generated: 01/09/21 7:25 pm Comments DCP- Discharge Planning Updated by [email or web address]: Manuel Blanchard on 01/09/21 4:[address] CM met with patient to complete DC plan and to evaluate needs. Patient lives independently with his spouse (Bhakti Jolly - [phone]) and his brother. At discharge, the patient plans to return home and feels this is a safe discharge. CM discussed availability of home health, rehab services, and medical equipment. Patient declined SNF and DME. Patient stated that he has DME from a previous surgery. Patient stated that his preference is to go home with Home Health Physical Therapy through [facility] but understands the benefits of inpatient rehab with [facility]. PRESTON signed and placed on chart. Patient voiced no other needs at this time and is satisfied with DC plan. CM will continue to follow and will assist as needed with dc plans/needs. DCPIA - Discharge Planning Initial Assessment Updated by [email or web address]: Manuel Blanchard on 01/09/21 6:19 pm * Is the patient Alert and Oriented? Yes * How many steps to enter\exit or inside your home? 0/0 * PCP MARCO * Pharmacy [facility] * Preadmission Environment Home with Family * ADLs Independent * Equipment Cane Crutch Rolling Walker Shower Chair Walker * Other Equipment Knee scooter * List name and contact numbers for known caregivers / representatives who currently or will assist patient after discharge: Bhakti Jolly () [phone] * Verbal permission to speak to the caregivers and representatives has been obtained from the patient. Yes * Community resources currently utilized None * Please name any agencies selected above. n/a * Additional services required to return to the preadmission environment? Yes * Can the patient safely return to the preadmission environment? Yes * Has this patient been hospitalized within the prior 30 days at any hospital? No Coverage Notice Reviewer: [email or web address] Diaz Blanchard Notice Issued Date-Time: 01/09/2021 18:00 Notice Type: Patient Choice Letter Notice Delivered To: Patient Relationship to Patient: Self Washer Meat Name: Delivery Method: HAND - Hand Delivered Christine Days: Prior Verbal Notification: Recipient Understood Notice: Yes Recipient Signature: Yes Med Rec Note Co-signed by Attending: Coverage Notice Comment: [facility] Inpatient Rehab [facility] with PT Last DP export: 01/09/21 4:18 p Patient Name: OLIVIA JOLLY Page [phone] at 1825 All edits/amendments must be made on the electronic document DICTATION DATE: 01/09/211824 DECORATIVE GREENS CUTTER: HARRISON 01/09/211824 RPT#: [id number] DC DATE: STATUS: ADM IN [facility] [address] [place] [address] END OF REPORT
[2021-01-09 19:00] VITALS: BP 154/62
--- NOTE | 2021-01-09 19:30 | NUR ---
RECEIVED REPORT, WILL ASSUME CARE OF PT, SITTING ON SIDE OF BED, EATING DINNER, AT BEDSIDE, PT ASKING FOR PAIN MEDS, PROVIDED NORCO ORDERED, BED IS LOW, SRX1, CALL LIGHT IN REACH, WILL CONTINUE PLAN OF CARE
[2021-01-10] VITALS: BP 152/55
[2021-01-10 06:09] VITALS: BP 151/57
[2021-01-10 07:03] LABS: ALBUMIN 2.2 g/dL (3.4-5.0); BILIRUBIN - TOTAL 0.3 mg/dL (0.2-1.3); CALCIUM 7.9 mg/dL (8.5-10.1); CARBON DIOXIDE 24.8 mmol/L (21.0-32.0); CREATININE - SERUM 1.7 mg/dL (0.6-1.3); MAGNESIUM - SERUM 1.7 mg/dL (1.8-2.4); PROTEIN - SERUM 6.4 g/dL (6.4-8.2); VANCOMYCIN - RANDOM 16.3 ug/mL (10.0-20.0)
[2021-01-10 07:04] LABS: ANION GAP 10.9 mmol/L (8-16); POTASSIUM - SERUM 4.7 mmol/L (3.5-5.1)
[2021-01-10 07:58] LABS: BASOPHILS 0.2 % (0-2); EOSINOPHILS 1.2 % (0-7); HEMATOCRIT 22.3 % (42.0-54.0); IMMATURE GRANULOCYTES 5.7 % (0-5); LYMPHOCYTE ABS# 1.86 10x3/uL (1.32-3.57); LYMPHOCYTES 20.2 % (15-50); MCH 29.6 pg (26.0-34.0); MCHC 31.8 g/dL (31.0-37.0); MCV 92.9 fL (80.0-100.0); MEAN PLATELET VOLUME 10.5 fL (7.4-10.4); MONOCYTES 8.2 % (2-11); NEUTROPHIL ABS# 5.95 10x3/uL (1.78-5.38); NEUTROPHILS 64.5 % (40-80); RDW 15.4 % (11.5-14.5); WBC 9.2 10x3/uL (4.8-10.8)
[2021-01-10 07:59] LABS: HEMOGLOBIN 7.1 g/dL (13.5-17.5); PLATELET COUNT 382 10x3/uL (130-400)
[2021-01-10 08:22] VITALS: BP 145/60
[2021-01-10 12:00] VITALS: BP 155/58
--- NOTE | 2021-01-10 12:24 | NUR ---
PT AWAKE AND ORIENTED, STATES THAT HIS PAIN IS FREQUENT BUT INTERMITTENT AND CHANGES FEELINGS OFTEN, GOING FROM A SHARP BURNING, TO PULLING, TO ACHING ECT. PT MAXED OUT OF HIS ALOTTED BLANCA, SPOKE WITH DYLON, OBTAINED PRN RAFAELAID. PT STATES IT HAS HELPED WITH PAIN CONTROL. TO GIVE 2U PRBCS, BLOOD BANK HAS NOT CALLED TO SAY UNITS ARE READY AT THIS TIME. WILL CONT. TO CHECK. PT STATES HE DOES NOT WANT TO GO TO REHAB AND FEELS HE WOULD DO WELL AT HOME WITH HOME HEATLH. ORTHO IN ROOM STATES PT IS CLEAR TO D/C FROM THEIR PERSPECTIVE AFTER PT RECIEVES PRBCS. AT BEDSIDE, CL IN REACH, SRX.
--- NOTE | 2021-01-10 12:43 | MORECARE ---
CASE MANAGEMENT DISCHARGE SUMMARY PATIENT: OLIVIA JOLLY JR UNIT: [id number] ADM DATE: 01/02/21 AGE: 55 : 63 SEX: M ROOM/BED: D.2121 AUTHOR: NEALDOC PHYSICIAN: REFERRING PHYSICIAN: ELY CARTAGENA MD DATE OF SERVICE: 01/10/21 Discharge Plan Patient Name: OLIVIA JOLLY [facility] : 1965 Planned Disposition: Inpatient Rehab Anticipated Discharge Date: Discharge Date: Expected LOS: Initial Reviewer: [email or web address] Initial Review Date: 01/02/2021 Generated: 01/10/21 1:42 pm Comments DCP- Discharge Planning Updated by [email or web address]: Manuel Blanchard on 01/09/21 4:[address] CM met with patient to complete DC plan and to evaluate needs. Patient lives independently with his spouse (Bhakti Jolly - [phone]) and his brother. At discharge, the patient plans to return home and feels this is a safe discharge. CM discussed availability of home health, rehab services, and medical equipment. Patient declined SNF and DME. Patient stated that he has DME from a previous surgery. Patient stated that his preference is to go home with Home Health Physical Therapy through [facility] but understands the benefits of inpatient rehab with [facility]. PRESTON signed and placed on chart. Patient voiced no other needs at this time and is satisfied with DC plan. CM will continue to follow and will assist as needed with dc plans/needs. DCPIA - Discharge Planning Initial Assessment Updated by [email or web address]: Manuel Blanchard on 01/09/21 6:19 pm * Is the patient Alert and Oriented? Yes * How many steps to enter\exit or inside your home? 0/0 * PCP MARCO * Pharmacy [facility] * Preadmission Environment Home with Family * ADLs Independent * Equipment Cane Crutch Rolling Walker Shower Chair Walker * Other Equipment Knee scooter * List name and contact numbers for known caregivers / representatives who currently or will assist patient after discharge: Bhakti Jolly () [phone] * Verbal permission to speak to the caregivers and representatives has been obtained from the patient. Yes * Community resources currently utilized None * Please name any agencies selected above. n/a * Additional services required to return to the preadmission environment? Yes * Can the patient safely return to the preadmission environment? Yes * Has this patient been hospitalized within the prior 30 days at any hospital? No External Providers External Provider: [facility] Next Contact Date: Service Request Date: Service Type: Resolution: Reviewer: Comments: Coverage Notice Reviewer: [email or web address] Diaz Blanchard Notice Issued Date-Time: 01/09/2021 18:00 Notice Type: Patient Choice Letter Notice Delivered To: Patient Relationship to Patient: Self Roof Slater Name: Delivery Method: HAND - Hand Delivered Christine Days: Prior Verbal Notification: Recipient Understood Notice: Yes Recipient Signature: Yes Med Rec Note Co-signed by Attending: Coverage Notice Comment: [facility] Inpatient Rehab [facility] with PT Last DP export: 01/09/21 4:25 p Patient Name: OLIVIA JOLLY Page 22487 at 1243 All edits/amendments must be made on the electronic document DICTATION DATE: 01/10/21 1243 TEACHER DANCING: HARRISON 01/10/21 1243 RPT#: [id number] DC DATE: STATUS: ADM IN [facility] [address] [place] [address] END OF REPORT
--- NOTE | 2021-01-10 12:57 | MORECARE ---
CASE MANAGEMENT DISCHARGE SUMMARY PATIENT: OLIVIA JOLLY JR UNIT: [id number] ADM DATE: 01/02/21 AGE: 55 : 63 SEX: M ROOM/BED: D.2121 AUTHOR: NEALDOC PHYSICIAN: REFERRING PHYSICIAN: ELY CARTAGENA MD DATE OF SERVICE: 01/10/21 Discharge Plan Patient Name: OLIVIA JOLLY [facility] [facility] 1965 Planned Disposition: Inpatient Rehab Anticipated Discharge Date: Discharge Date: Expected LOS: Initial Reviewer: [email or web address] Initial Review Date: 01/02/2021 Generated: 01/10/21 1:57 pm Comments DCP- Discharge Planning Updated by [email or web address]: Manuel Blanchard on 01/09/21 4:[address] CM met with patient to complete DC plan and to evaluate needs. Patient lives independently with his spouse (Bhakti Jolly - [phone]) and his brother. At discharge, the patient plans to return home and feels this is a safe discharge. CM discussed availability of home health, rehab services, and medical equipment. Patient declined SNF and DME. Patient stated that he has DME from a previous surgery. Patient stated that his preference is to go home with Home Health Physical Therapy through [facility] but understands the benefits of inpatient rehab with [facility]. PRESTON signed and placed on chart. Patient voiced no other needs at this time and is satisfied with DC plan. CM will continue to follow and will assist as needed with dc plans/needs. DCPIA - Discharge Planning Initial Assessment Updated by [email or web address]: Manuel Blanchard on 01/09/21 6:19 pm * Is the patient Alert and Oriented? Yes * How many steps to enter\exit or inside your home? 0/0 * PCP MARCO * Pharmacy [facility] * Preadmission Environment Home with Family * ADLs Independent * Equipment Cane Crutch Rolling Walker Shower Chair Walker * Other Equipment Knee scooter * List name and contact numbers for known caregivers / representatives who currently or will assist patient after discharge: Bhakti Jolly () [phone] * Verbal permission to speak to the caregivers and representatives has been obtained from the patient. Yes * Community resources currently utilized None * Please name any agencies selected above. n/a * Additional services required to return to the preadmission environment? Yes * Can the patient safely return to the preadmission environment? Yes * Has this patient been hospitalized within the prior 30 days at any hospital? No External Providers [facility] Provider[facility] Next Contact Date: Service Request Date: Service Type: Resolution: Reviewer: Comments: Coverage Notice Reviewer: [email or web address] Diaz Blanchard Notice Issued Date-Time: 01/09/2021 18:00 Notice Type: Patient Choice Letter Notice Delivered To: Patient Relationship to Patient: Self Fare Register Repairer Name: Delivery Method: HAND - Hand Delivered Christine Days: Prior Verbal Notification: Recipient Understood Notice: Yes Recipient Signature: Yes Med Rec Note Co-signed by Attending: Coverage Notice Comment: [facility] Inpatient Rehab [facility] with PT Last DP export: 01/10/21 10:43 a Patient Name: OLIVIA JOLLY Page [phone] at 1257 All edits/amendments must be made on the electronic document DICTATION DATE: 01/10/21 1257 TRIMMING PRESS OPERATOR: HARRISON 01/10/21 1257 RPT#: [id number] DC DATE: STATUS: ADM IN [facility] [address] [place] [address] END OF REPORT
--- NOTE | 2021-01-10 13:05 | MORECARE ---
CASE MANAGEMENT DISCHARGE SUMMARY PATIENT: OLIVIA JOLLY JR UNIT: [id number] ADM DATE: 01/02/21 AGE: 55 : 63 SEX: M ROOM/BED: D.2121 AUTHOR: NEALDOC PHYSICIAN: REFERRING PHYSICIAN: ELY CARTAGENA MD DATE OF SERVICE: 01/10/21 Discharge Plan Patient Name: OLIVIA JOLLY [facility] [facility] 1965 Planned Disposition: Inpatient Rehab Anticipated Discharge Date: Discharge Date: Expected LOS: Initial Reviewer: [email or web address] Initial Review Date: 01/02/2021 Generated: 01/10/21 2:04 pm Comments DCP- Discharge Planning Updated by [email or web address]: Britney Lord on 01/10/21 11:[address] CM met with patient and he does not want to go to rehab at this time. He wants to go home with home health. PRESTON for [facility] signed. States he also needs a light weight wheel chair for his to be able to machine operator hop picker and put in his car and a BSC. I have talked with Sneha and Dr. Buenrostro about this. CM spoke with Manuel at [facility] and he will be here shortly with the W/C and BSC. I spoke with Betty at [facility] and referral faxed. Home today with [facility] DCP- Discharge Planning Updated by [id number]: Manuel Blanchard on 01/09/21 4:[address] CM met with patient to complete DC plan and to evaluate needs. Patient lives independently with his spouse ([facility] [phone]) and his brother. At discharge, the patient plans to return home and feels this is a safe discharge. CM discussed availability of home health, rehab services, and medical equipment. Patient declined SNF and DME. Patient stated that he has DME from a previous surgery. Patient stated that his preference is to go home with Home Health Physical Therapy through [facility] but understands the benefits of inpatient rehab with [facility]. PRESTON signed and placed on chart. Patient voiced no other needs at this time and is satisfied with DC plan. CM will continue to follow and will assist as needed with dc plans/needs. DCPIA - Discharge Planning Initial Assessment Updated by [email or web address]: Manuel Blanchard on 01/09/21 6:19 pm * Is the patient Alert and Oriented? Yes * How many steps to enter\exit or inside your home? 0/0 * PCP MARCO * Pharmacy [facility] * Preadmission Environment Home with Family * ADLs Independent * Equipment Cane Crutch Rolling Walker Shower Chair Walker * Other Equipment Knee scooter * List name and contact numbers for known caregivers / representatives who currently or will assist patient after discharge: Bhakti Jolly () [phone] * Verbal permission to speak to the caregivers and representatives has been obtained from the patient. Yes * Community resources currently utilized None * Please name any agencies selected above. n/a * Additional services required to return to the preadmission environment? Yes * Can the patient safely return to the preadmission environment? Yes * Has this patient been hospitalized within the prior 30 days at any hospital? No Coverage Notice Reviewer: [id number] - Manuel Blanchard Notice Issued Date-Time: 01/09/2021 18:00 Notice Type: Patient Choice Letter Notice Delivered To: Patient Relationship to Patient: Self Data Center Manager Name: Delivery Method: HAND - Hand Delivered Christine Days: Prior Verbal Notification: Recipient Understood Notice: Yes Recipient Signature: Yes Med Rec Note Co-signed by Attending: Coverage Notice Comment: [facility] Inpatient Rehab [facility] with PT Reviewer: [id number] - Britney Lord Notice Issued Date-Time: 01/10/2021 13:00 Notice Type: Patient Choice Letter Notice Delivered To: Patient Relationship to Patient: Self Data Center Manager Name: Delivery Method: HAND - Hand Delivered Christine Days: Prior Verbal Notification: Recipient Understood Notice: Yes Recipient Signature: Yes Med Rec Note Co-signed by Attending: Coverage Notice Comment: PRESTON for [facility], spouse in room and signed for him. Last DP export: 01/10/21 10:57 a Patient Name: OLIVIA JOLLY Page 07338 at 1305 All edits/amendments must be made on the electronic document DICTATION DATE: 01/10/21 1304 INSPECTION ENGINEER: HARRISON 01/10/21 1304 RPT#: [id number] DC DATE: STATUS: ADM IN [facility] [address] [place] [address] END OF REPORT
[2021-01-10] MEDS ORDERED: LEXAPRO10 MG PO (14:39)
[2021-01-10] MEDS ORDERED: GABAPENTIN100 MG PO (14:39)
[2021-01-10] MEDS ORDERED: LOKELMA10 GM PO (14:40)
[2021-01-10] MEDS ORDERED: COLACE100 MG PO (14:40)
[2021-01-10] MEDS ORDERED: FLORAJEN3 CAPS460 MG PO (14:40)
[2021-01-10] MEDS ORDERED: LEVOTHYROXINE200 MCG PO (14:41)
[2021-01-10] MEDS ORDERED: LANTUS INS100 UNITS/ SC (14:41)
[2021-01-10 15:00] VITALS: BP 166/92
--- NOTE | 2021-01-10 15:06 | NUR ---
UNIT PRBC STARTED VIA PIV TO RIGHT ARM. CUSTOMER ACCOUNT TECHNICIAN MONITORING, PT INSTRUCTED TO NOTIFY FOR PROBLEMS. VITALS BEING MONITORED.
--- NOTE | 2021-01-10 15:19 | MORECARE ---
CASE MANAGEMENT DISCHARGE SUMMARY PATIENT: OLIVIA JOLLY JR UNIT: [id number] ADM DATE: 01/02/21 AGE: 55 : 63 SEX: M ROOM/BED: D.2014 AUTHOR: NEALDOC PHYSICIAN: REFERRING PHYSICIAN: ELY CARTAGENA MD DATE OF SERVICE: 01/10/21 Discharge Plan Patient Name: [facility]IVIA JOLLY [facility] [facility] 1965 Planned Disposition: Inpatient Rehab Anticipated Discharge Date: Discharge Date: Expected LOS: Initial Reviewer: [email or web address] Initial Review Date: 01/02/2021 Generated: 01/10/21 4:18 pm Comments DCP- Discharge Planning Updated by [email or web address]: Britney Lord on 01/10/21 1:[address] DC order and med list faxed to [facility]. I called Betty to see if they have accepted and they have not ran his insurance yet, so will call me back. Home today with home health. DCP- Discharge Planning Updated by [email or web address]: Britney Lord on 01/10/21 11:[address] CM met with patient and he does not want to go to rehab at this time. He wants to go home with home health. PRESTON for [facility] signed. 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 I have talked with Sneha and Dr. Buenrostro about this. CM spoke with Manuel at [facility] and he will be here shortly with the W/C and BSC. I spoke with Betty at [facility] and referral faxed. Home today with [facility] DCP- Discharge Planning Updated by [id number]: Manuel Blanchard on 01/09/21 4:[address] CM met with patient to complete DC plan and to evaluate needs. Patient lives independently with his spouse (Bhakti Bakari - [phone]) and his brother. At discharge, the patient plans to return home and feels this is a safe discharge. CM discussed availability of home health, rehab services, and medical equipment. Patient declined SNF and DME. Patient stated that he has DME from a previous surgery. Patient stated that his preference is to go home with Home Health Physical Therapy through [facility] but understands the benefits of inpatient rehab with [facility]. PRESTON signed and placed on chart. Patient voiced no other needs at this time and is satisfied with DC plan. CM will continue to follow and will assist as needed with dc plans/needs. DCPIA - Discharge Planning Initial Assessment Updated by [id number]: Manuel Blanchard on 01/09/21 6:19 pm * Is the patient Alert and Oriented? Yes * How many steps to enter\exit or inside your home? 0/0 * PCP MARCO * Pharmacy [facility] * Preadmission Environment Home with Family * ADLs Independent * Equipment Cane Crutch Rolling Walker Shower Chair Walker * Other Equipment Knee scooter * List name and contact numbers for known caregivers / representatives who currently or will assist patient after discharge: Bhakti Jolly () [phone] * Verbal permission to speak to the caregivers and representatives has been obtained from the patient. Yes * Community resources currently utilized None * Please name any agencies selected above. n/a * Additional services required to return to the preadmission environment? Yes * Can the patient safely return to the preadmission environment? Yes * Has this patient been hospitalized within the prior 30 days at any hospital? No Coverage Notice Reviewer: [id number] - Manuel Blanchard Notice Issued Date-Time: 01/09/2021 18:00 Notice Type: Patient Choice Letter Notice Delivered To: Patient Relationship to Patient: Self Paraffiner Name: Delivery Method: HAND - Hand Delivered Christine Days: Prior Verbal Notification: Recipient Understood Notice: Yes Recipient Signature: Yes Med Rec Note Co-signed by Attending: Coverage Notice Comment: [facility] Inpatient Rehab [facility] with PT Reviewer: [id number] Diaz Lord Notice Issued Date-Time: 01/10/2021 13:00 Notice Type: Patient Choice Letter Notice Delivered To: Patient Relationship to Patient: Self Paraffiner Name: Delivery Method: HAND - Hand Delivered Christine Days: Prior Verbal Notification: Recipient Understood Notice: Yes Recipient Signature: Yes Med Rec Note Co-signed by Attending: Coverage Notice Comment: [facility] for [facility], spouse in room and signed for him. Last DP export: 01/10/21 11:05 a Patient Name: OLIVIA JOLLY Page [phone] at 1519 All edits/amendments must be made on the electronic document DICTATION DATE: 01/10/211518 PROCESSING ASSISTANT: HARRISON 01/10/211518 RPT#: [id number] DC DATE: STATUS: ADM IN [facility] [address] [place] [address] END OF REPORT
--- NOTE | 2021-01-10 16:57 | NUR ---
REHAB PRESCREENING Clinicals faxed to [place] at [phone] with [facility] #[phone]. Awaiting determination. It is my understanding that this patient has decided to go home. Rehab will continue to follow this patient with phone calls past discharge in case he does not have a successful transition. Thank you for this referral! Melissa Hurtado, BIBLE READER Rehab PD
--- NOTE | 2021-01-10 17:01 | NUR ---
OT NOTE: PT COMPLETED SIT TO STANDS WITH CGA. PT COMPLETED BUE TRICEP PUSHUP FROM CHAIR. PT COMPLETED BUE AROM ENDURANCE EXERCISES TOLERATED. PT COMPLETED SITTING BALANCE WITH SPV. PT STATED HE IS A LITTLE DOWN TODAY. PT COOPERATED AND ACTIVELY PARTICIPATED. PT GIVEN FARRAH MARINO FOR UE STRENGTHENING. [phone] THANK YOU,JUDITH WOLF
--- NOTE | 2021-01-10 17:11 | MORECARE ---
CASE MANAGEMENT DISCHARGE SUMMARY PATIENT: OLIVIA JOLLY JR UNIT: [id number] ADM DATE: 01/02/21 AGE: 55 : 63 SEX: M ROOM/BED: D.2124 AUTHOR: NEAL,DOC PHYSICIAN: REFERRING PHYSICIAN: ELY CARTAGENA MD DATE OF SERVICE: 01/10/21 Discharge Plan Patient Name: OLIVIA JOLLY Facility[facility]:[place] : 1965 Planned Disposition: Inpatient Rehab Anticipated Discharge Date: Discharge Date: Expected LOS: Initial Reviewer: [email or web address] Initial Review Date: 01/02/2021 Generated: 01/10/21 6:10 pm Comments DCP- Discharge Planning Updated by [email or web address]: Britney Lord on 01/10/21 3:[address] CM spoke with Moises with [facility] and he states they have him on schedule for tomorrow, but will call case management if his insurance does not authorize. I will notify ARELIS tomorrow. DCP- Discharge Planning Updated by [email or web address]: Britney Lord on 01/10/21 1:[address] DC order and med list faxed to [facility]. I called Betty to see if they have accepted and they have not ran his insurance yet, so will call me back. Home today with home health. DCP- Discharge Planning Updated by [email or web address]: Britney Lord on 01/10/21 11:[address] CM met with patient and he does not want to go to rehab at this time. He wants to go home with home health. PRE[facility] for [facility] signed. 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 I have talked with Sneha and Dr. Buenrostro about this. ARELIS spoke with Manuel at [facility] and he will be here shortly with the W/C and BSC. I spoke with Betty at [facility] and referral faxed. Home today with [facility] DCP- Discharge Planning Updated by [id number]: Manuel Blanchard on 01/09/21 4:[address] CM met with patient to complete DC plan and to evaluate needs. Patient lives independently with his spouse (Bhakti Bakari - [phone]) and his brother. At discharge, the patient plans to return home and feels this is a safe discharge. CM discussed availability of home health, rehab services, and medical equipment. Patient declined SNF and DME. Patient stated that he has DME from a previous surgery. Patient stated that his preference is to go home with Home Health Physical Therapy through [facility] but understands the benefits of inpatient rehab with [facility]. PRESTON signed and placed on chart. Patient voiced no other needs at this time and is satisfied with DC plan. CM will continue to follow and will assist as needed with dc plans/needs. DCPIA - Discharge Planning Initial Assessment Updated by [email or web address]: Manuel Blanchard on 01/09/21 6:19 pm * Is the patient Alert and Oriented? Yes * How many steps to enter\exit or inside your home? 0/0 * PCP MARCO * Pharmacy [facility] * Preadmission Environment Home with Family * ADLs Independent * Equipment Cane Crutch Rolling Walker Shower Chair Walker * Other Equipment Knee scooter * List name and contact numbers for known caregivers / representatives who currently or will assist patient after discharge: Bhakti Jolly () [phone] * Verbal permission to speak to the caregivers and representatives has been obtained from the patient. Yes * Community resources currently utilized None * Please name any agencies selected above. n/a * Additional services required to return to the preadmission environment? Yes * Can the patient safely return to the preadmission environment? Yes * Has this patient been hospitalized within the prior 30 days at any hospital? No Coverage Notice Reviewer: [id number] - Manuel Blanchard Notice Issued Date-Time: 01/09/2021 18:00 Notice Type: Patient Choice Letter Notice Delivered To: Patient Relationship to Patient: Self Junior Automation Engineer Name: Delivery Method: HAND - Hand Delivered Christine Days: Prior Verbal Notification: Recipient Understood Notice: Yes Recipient Signature: Yes Med Rec Note Co-signed by Attending: Coverage Notice Comment: [facility] Inpatient Rehab [facility] with PT Reviewer: [id number] - Britney Lord Notice Issued Date-Time: 01/10/2021 13:00 Notice Type: Patient Choice Letter Notice Delivered To: Patient Relationship to Patient: Self Junior Automation Engineer Name: Delivery Method: HAND - Hand Delivered Christine Days: Prior Verbal Notification: Recipient Understood Notice: Yes Recipient Signature: Yes Med Rec Note Co-signed by Attending: Coverage Notice Comment: [facility] for [facility], spouse in room and signed for him. Last DP export: 01/10/21 1:19 p Patient Name: OLIVIA JOLLY Page [phone] at 1711 All edits/amendments must be made on the electronic document DICTATION DATE: 01/10/211710 BIOTECHNOLOGIST: HARRISON 01/10/211710 RPT#: [id number] DC DATE: STATUS: ADM IN [facility] [address] [place] [address] END OF REPORT
--- NOTE | 2021-01-10 18:00 | NUR ---
I have reviewed this patient and I concur with the Shift Assessment completed by the Licensed Practical Nurse today this shift.
--- NOTE | 2021-01-10 18:16 | NUR ---
SECOND UNIT OF BLOOD ADMINISTERING. PT ALERT AND ORIENTED, TOLERATING PRBC, V/S WNL FOR PT. NO COMPLAINTS OR CONCERNS, STATES HE IS EAGER TO GET OUT OF THE HOSPITAL LATER TODAY. D/C PAPERWORK GIVEN, FILLED PRESCRIPTIONS, TO ASSIST WITH BRINGING TOILET OUT TO POV WHEN THEY ARRIVE TO GET HIM. CL IN [facility], SRX2.
--- NOTE | 2021-01-10 20:45 | NUR ---
SECOND UNIT OF PRBCS FINISHED INFUSING, LINE FLUSHIG WITH NS. NO S/S ADVERSE REACTIONS NOTED.
[2021-01-10 21:06] VITALS: BP 164/79
--- NOTE | 2021-01-10 21:16 | NUR ---
IV TO RIGHT ARM REMOVED, TIP INTACT, PT DC'D HOME. DC INSTRUCTIONS GIVEN.
--- NOTE | 2021-01-10 23:06 | MORECARE ---
CASE MANAGEMENT DISCHARGE SUMMARY PATIENT: OLIVIA JOLLY JR UNIT: [id number] ADM DATE: 01/02/21 AGE: 55 : 63 SEX: M ROOM/BED: D.9193 AUTHOR: NEAL,DOC PHYSICIAN: REFERRING PHYSICIAN: ELY CARTAGENA MD DATE OF SERVICE: 01/10/21 Discharge Plan Patient Name: OLIVIA JOLLY Facility: [facility]:[place] : 1965 Planned Disposition: Inpatient Rehab Anticipated Discharge Date: Discharge Date: 01/10/2021 Expected LOS: Initial Reviewer: [email or web address] Initial Review Date: 01/02/2021 Generated: 01/11/21 12:06 am Comments DCP- Discharge Planning Updated by [id number]: Britney Lord on 01/10/21 3:[address] CM spoke with Ray with [facility] and he states they have him on schedule for tomorrow, but will call case management if his insurance does not authorize. I will notify ARELIS tomorrow. DCP- Discharge Planning Updated by [id number]: Britney Lord on 01/10/21 1:[address] DC order and med list faxed to [facility]. I called Betty to see if they have accepted and they have not ran his insurance yet, so will call me back. [facility] DCP- Discharge Planning Updated by [email or web address]: Britney Lord on 01/10/21 11:[address] CM met with patient and he does not want to go to rehab at this time. He wants to go home with home health. PRESTON for [facility] signed. 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 I have talked with Sneha and Dr. Buenrostro about this. CM spoke with Manuel at [facility] and he will be here shortly with the W/C and BSC. I spoke with Betty at [facility] and referral faxed. Home today with [facility] DCP- Discharge Planning Updated by [id number]: Manuel Blanchard on 01/09/21 4:[address] CM met with patient to complete DC plan and to evaluate needs. Patient lives independently with his spouse ([phone]) and his brother. At discharge, the patient plans to return home and feels this is a safe discharge. CM discussed availability of home health, rehab services, and medical equipment. Patient declined SNF and DME. Patient stated that he has DME from a previous surgery. Patient stated that his preference is to go home with Home Health Physical Therapy through [email or web address] but understands the benefits of inpatient rehab with [facility]. PRESTON signed and placed on chart. Patient voiced no other needs at this time and is satisfied with DC plan. CM will continue to follow and will assist as needed with dc plans/needs. DCPIA - Discharge Planning Initial Assessment Updated by [email or web address]: Manuel Blanchard on 01/09/21 6:19 pm * Is the patient Alert and Oriented? Yes * How many steps to enter\exit or inside your home? 0/0 * PCP MARCO * Pharmacy [facility] * Preadmission Environment Home with Family * ADLs Independent * Equipment Cane Crutch Rolling Walker Shower Chair Walker * Other Equipment Knee scooter * List name and contact numbers for known caregivers / representatives who currently or will assist patient after discharge: Bhakti Jolly () [phone] * Verbal permission to speak to the caregivers and representatives has been obtained from the patient. Yes * Community resources currently utilized None * Please name any agencies selected above. n/a * Additional services required to return to the preadmission environment? Yes * Can the patient safely return to the preadmission environment? Yes * Has this patient been hospitalized within the prior 30 days at any hospital? No Coverage Notice Reviewer: [id number] - Manuel Blanchard Notice Issued Date-Time: 01/09/2021 18:00 Notice Type: Patient Choice Letter Notice Delivered To: Patient Relationship to Patient: Self Conveyor Belt Installer Name: Delivery Method: HAND - Hand Delivered Christine Days: Prior Verbal Notification: Recipient Understood Notice: Yes Recipient Signature: Yes Med Rec Note Co-signed by Attending: Coverage Notice Comment: [facility] Inpatient Rehab [facility] with PT Reviewer: [id number] - Britney Lord Notice Issued Date-Time: 01/10/2021 13:00 Notice Type: Patient Choice Letter Notice Delivered To: Patient Relationship to Patient: Self Conveyor Belt Installer Name: Delivery Method: HAND - Hand Delivered Christine Days: Prior Verbal Notification: Recipient Understood Notice: Yes Recipient Signature: Yes Med Rec Note Co-signed by Attending: Coverage Notice Comment: [facility] for [facility], spouse in room and signed for him. Last DP export: 01/10/21 3:11 p Patient Name: OLIVIA JOLLY Page [phone] at 2306 All edits/amendments must be made on the electronic document DICTATION DATE: 01/10/212305 LAYUP WORKER: HARRISON 01/10/212305 RPT#: [id number] DC DATE:01/10/21 STATUS: DIS IN [facility] [address] [place] [address] END OF REPORT
== END 2021-01-10 21:17 | disposition home health service (06) | DRG 853 ==
LOC: D.ER 14:56 → D.M2 15:19 → D.EDHOLD 15:19 → D.M2 16:37
PROVIDERS: Family Medicine; Internal Medicine; Orthopaedic Surgery; ADMIT Emergency Medicine; ATTEND Emergency Medicine
PROC: 0J9R3ZZ Drainage of Left Foot Subcutaneous Tissue and Fascia, Percutaneous Approach (ICD-10-PCS; 2021-01-02)
PROC: 0Y6J0Z3 Detachment at Left Lower Leg, Low, Open Approach (ICD-10-PCS; principal; 2021-01-03 12:00)
PROC: 2W1MX6Z Compression of Left Lower Extremity using Pressure Dressing (ICD-10-PCS; 2021-01-05)
PROC: 0J9P0ZZ Drainage of Left Lower Leg Subcutaneous Tissue and Fascia, Open Approach (ICD-10-PCS; 2021-01-05 12:30)
PROC: 0Y6J0Z3 Detachment at Left Lower Leg, Low, Open Approach (ICD-10-PCS; 2021-01-07)
DX: A41.9 Sepsis, unspecified organism (principal); M72.6 Necrotizing fasciitis; A48.0 Gas gangrene; J96.21 Acute and chronic respiratory failure with hypoxia; G93.41 Metabolic encephalopathy; N17.0 Acute kidney failure with tubular necrosis; E11.52 Type 2 diabetes mellitus with diabetic peripheral angiopathy with gangrene; Z68.41 Body mass index [BMI] 40.0-44.9, adult; E87.1 Hypo-osmolality and hyponatremia; M86.9 Osteomyelitis, unspecified; L03.116 Cellulitis of left lower limb; E78.5 Hyperlipidemia, unspecified; E11.22 Type 2 diabetes mellitus with diabetic chronic kidney disease; I12.9 Hypertensive chronic kidney disease with stage 1 through stage 4 chronic kidney disease, or unspecified chronic kidney disease; N18.9 Chronic kidney disease, unspecified; E03.9 Hypothyroidism, unspecified; Z79.01 Long term (current) use of anticoagulants; E66.01 Morbid (severe) obesity due to excess calories; E11.69 Type 2 diabetes mellitus with other specified complication; E11.65 Type 2 diabetes mellitus with hyperglycemia; E87.5 Hyperkalemia

== ENCOUNTER → 2021-01-28 14:17 | Outpatient (CLI) | payer OTHER ==
[2021-01-03 12:53] VITALS: BMI 39.5
[~2021-01-28 14:17] MED LIST changes: +ADOXA100 MG PO; +COLACE100 MG PO; +FLORAJEN3 CAPS460 MG PO; +GABAPENTIN100 MG PO; +LANTUS INS100 UNITS/ SC; +LEVOTHYROXINE200 MCG PO; +LEXAPRO10 MG PO; +LOKELMA10 GM PO
[2021-01-28 14:42] LABS: BASOPHILS 0.3 % (0-2); EOSINOPHILS 1.3 % (0-7); HEMATOCRIT 29.4 % (42.0-54.0); HEMOGLOBIN 9.3 g/dL (13.5-17.5); IMMATURE GRANULOCYTES 0.5 % (0-5); LYMPHOCYTE ABS# 1.89 10x3/uL (1.32-3.57); LYMPHOCYTES 25.5 % (15-50); MCH 29.2 pg (26.0-34.0); MCHC 31.6 g/dL (31.0-37.0); MCV 92.2 fL (80.0-100.0); MEAN PLATELET VOLUME 11.2 fL (7.4-10.4); MONOCYTES 7.3 % (2-11); NEUTROPHIL ABS# 4.83 10x3/uL (1.78-5.38); NEUTROPHILS 65.1 % (40-80); RBC 3.19 10x6/uL (4.20-6.10); RDW 14.5 % (11.5-14.5); WBC 7.4 10x3/uL (4.8-10.8)
[2021-01-28 15:16] LABS: PLATELET COUNT 217 10x3/uL (130-400)
== END | disposition home or self-care (01) ==
LOC: D.LABREF 14:17
PROVIDERS: ATTEND Emergency Medicine
DX: Z89.512 Acquired absence of left leg below knee (principal)

== ENCOUNTER 2021-01-28 18:10 | Emergency (ER) | payer OTHER ==
[~2021-01-28] VITALS: Ht 185.4 cm; Wt 128.6 kg
[2021-01-28 18:19] VITALS: Ht 185.4 cm; Wt 128.6 kg
[2021-01-28 19:14] LABS: BASOPHILS 0.2 % (0-2); EOSINOPHILS 1.4 % (0-7); HEMATOCRIT 31.3 % (42.0-54.0); IMMATURE GRANULOCYTES 0.5 % (0-5); LYMPHOCYTES 23.9 % (15-50); MCH 29.2 pg (26.0-34.0); MCHC 31.9 g/dL (31.0-37.0); MCV 91.5 fL (80.0-100.0); MEAN PLATELET VOLUME 10.8 fL (7.4-10.4); MONOCYTES 4.9 % (2-11); NEUTROPHIL ABS# 6.96 10x3/uL (1.78-5.38); NEUTROPHILS 69.1 % (40-80); PLATELET COUNT 243 10x3/uL (130-400); RBC 3.42 10x6/uL (4.20-6.10); RDW 14.5 % (11.5-14.5)
[2021-01-28 19:17] LABS: WBC 10.1 10x3/uL (4.8-10.8)
[2021-01-28 19:26] LABS: APTT 33.4 SECONDS (22.8-39.4); INR 1.06 (0.85-1.17); PROTIME 12.8 SECONDS (11.6-15.0)
[2021-01-28 19:31] LABS: CALC OSMOLALITY 281 mosm/kg (275-300); CALCIUM 9.8 mg/dL (8.5-10.1); CARBON DIOXIDE 27.6 mmol/L (21.0-32.0); CHLORIDE - SERUM 100 mmol/L (98-107); CREATININE - SERUM 2.1 mg/dL (0.6-1.3); POTASSIUM - SERUM 4.4 mmol/L (3.5-5.1); SODIUM 137 mmol/L (136-145); UREA NITROGEN 29 mg/dL (7-18); eGFR NON AFRICAN AMERICAN 35 mL/min (90-120)
[2021-01-28 19:32] LABS: GLUCOSE 133 mg/dL (74-106)
[2021-01-28 19:44] LABS: ALBUMIN 3.4 g/dL (3.4-5.0); ALKALINE PHOSPHATASE 53 U/L (30-120); ALT (SGPT) 20 U/L (10-68); BILIRUBIN - TOTAL 0.31 mg/dL (0.2-1.3); CREATINE KINASE 40 UL (21-232); PRO BNP 94 pg/mL (0-125)
[2021-01-28 19:45] LABS: TROPONIN-I < 0.017 ng/mL (0.000-0.060)
[2021-01-29 00:59] VITALS: BP 130/75
== END 2021-01-28 21:35 | disposition home or self-care (01) ==
LOC: D.ER 18:10
PROVIDERS: Emergency Medicine
DX: R06.09 Other forms of dyspnea (principal); N18.9 Chronic kidney disease, unspecified; E11.22 Type 2 diabetes mellitus with diabetic chronic kidney disease; I12.9 Hypertensive chronic kidney disease with stage 1 through stage 4 chronic kidney disease, or unspecified chronic kidney disease; Z72.0 Tobacco use; Z79.4 Long term (current) use of insulin

== ENCOUNTER 2021-02-14 09:00 | Day surgery (SDC) | payer OTHER ==
[~2021-02-14] VITALS: Ht 188 cm; Wt 150.1 kg
[~2021-02-14 09:00] MED LIST changes: +VICTOZA0.6 MG/0.1 SQ
[2021-02-14 09:43] LABS: ANION GAP 15.7 mmol/L (8-16); CALCIUM 9.4 mg/dL (8.5-10.1); CARBON DIOXIDE 24.6 mmol/L (21.0-32.0); CREATININE - SERUM 2.3 mg/dL (0.6-1.3); POTASSIUM - SERUM 4.3 mmol/L (3.5-5.1)
[2021-02-14 09:47] LABS: BASOPHILS 0.1 % (0-2); EOSINOPHILS 1.8 % (0-7); HEMATOCRIT 30.1 % (42.0-54.0); HEMOGLOBIN 9.9 g/dL (13.5-17.5); IMMATURE GRANULOCYTES 0.5 % (0-5); LYMPHOCYTE ABS# 1.66 10x3/uL (1.32-3.57); LYMPHOCYTES 21.2 % (15-50); MCH 28.8 pg (26.0-34.0); MCHC 32.9 g/dL (31.0-37.0); MCV 87.5 fL (80.0-100.0); MEAN PLATELET VOLUME 10.5 fL (7.4-10.4); MONOCYTES 5.9 % (2-11); NEUTROPHIL ABS# 5.53 10x3/uL (1.78-5.38); NEUTROPHILS 70.5 % (40-80); PLATELET COUNT 231 10x3/uL (130-400); RBC 3.44 10x6/uL (4.20-6.10); RDW 13.9 % (11.5-14.5); WBC 7.8 10x3/uL (4.8-10.8)
[2021-02-14] MEDS ORDERED: BACTRIM DS TAB1 EAC1 (10:30)
[2021-02-14] MEDS ORDERED: RIFADIN150 MG (10:30)
[2021-02-14 10:31] VITALS: BP 124/72; Ht 188 cm; Wt 150.1 kg
--- NOTE | 2021-02-14 11:33 | NUR ---
REGLAN HELD DUE TO PATIENT W HX OF RESTLESS LEG
--- NOTE | 2021-02-14 19:10 | NUR ---
1910 IV COMPLETED, DC'D WITH CATH INTACT. DC INSTS. REVIEWED VOICED UNDERSTANDING, SON IS COMING, STATES HIS SON CAN HELP HIM GET DRESSED TO GO. HAS HIS OWN WC.
--- NOTE | 2021-02-14 19:30 | NUR ---
1924 PT'S SON IS HERE, PT. UP TO BR VOIDS QS, DRESSED, RELEASED IN HIS OWN WC. 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
--- NOTE | 2021-02-15 18:56 | OP ---
PATIENT NAME: OLIVIA VILLEGAS JR MEDICAL RECORD: [id number] :63 [facility] DATE: SURGEON: CARLYN CASTILLO MD DATE OF OPERATION: 02/14/2021 PREOPERATIVE DIAGNOSIS: Surgical wound dehiscence, left below-knee amputation. POSTOPERATIVE DIAGNOSIS: Surgical wound dehiscence, left below-knee amputation. PROCEDURE PERFORMED: 1. Incision and debridement of left below-knee amputation (skin and subcutaneous tissue). 2. Closure of complex wounds, left lower extremity (12 cm). INDICATIONS: Mr. Villegas is a 56-year-old male who is approximately 4 weeks status post left below-knee amputation. We have been monitoring him postoperatively. He still has a few areas along his incision that has been slow to heal, especially along the lateral aspect of the incision. We have decided to proceed with surgery for excision of those areas with wound closure. Risks, benefits, and alternatives of surgery were discussed with the patient and consent was obtained. DESCRIPTION OF PROCEDURE: The patient was met in the holding area where his identity and confirmation of procedure was performed. The left lower extremity was marked. He was taken to the operating room where he was placed supine on the operating table. Anesthesia was administered. Tourniquet was applied to the left leg and the left leg was prepped and draped in a sterile fashion. The patient received preoperative antibiotics and timeout was performed before initiating the case. On initiation of the case, the leg was exsanguinated and the tourniquet was raised. Total tourniquet time was 28 minutes. The wounds were then evaluated and noted to have superficial dehiscence with a dry eschar covering. These areas were elliptically excised. There was 2 and 3 cm area medially and a 7 cm area laterally. These were excised down to the subcutaneous tissues. There did not appear to be any deep infection. Cultures were obtained from the lateral wound. Wounds were irrigated thoroughly with saline. 2-0 PDS was used to close the deep tissues laterally. The skin was then closed with 3-0 nylon in a vertical mattress technique. This provided good reapproximation of the skin edges. Total length of closure, 12 cm. A sterile dressing was placed. The patient was turned back over to anesthesia where he was awakened, extubated, and taken to the recovery room in stable condition. POSTOPERATIVE PLAN: The patient is going to be continued on Bactrim and rifampin at home. We will plan to see him back in clinic in 2 weeks to evaluate his progress. Should he develop any symptoms of infection, he should notify us immediately. COMPLICATIONS: None. ESTIMATED BLOOD LOSS: 10 mL. ANESTHESIA: General. TRANSINT:[id number] Voice Confirmation ID: [id number] DOCUMENT ID: [id number] OPERATIVE REPORT [id number] OLIVIA VILLEGAS JR, BRENT M MD at 1856 CC: [id number] DICTATION DATE: 02/14/21 173 RAILWAY HEAD TENDER: 02/14/21 2342 [facility] [place] 02/14/21 [facility] [address] [place] [address]
== END 2021-02-14 19:35 | disposition home or self-care (01) ==
LOC: D.OPS 09:00
PROVIDERS: Anesthesiology; ATTEND Orthopaedic Surgery
DX: Z89.512 Acquired absence of left leg below knee (principal); T87.81 Dehiscence of amputation stump; G54.6 Phantom limb syndrome with pain; S81.802D Unspecified open wound, left lower leg, subsequent encounter